=== PATIENT | female | born 1955 | race Caucasian/White ===

== ENCOUNTER 2020-04-23 11:30 | Outpatient (RCR) | payer OTHER, SELFPAY ==
--- NOTE | 2020-04-23 14:34 | P.EN_ITS ---
Event Note Event Note: Message left for pt at [phone] to complete medication review.
--- NOTE | 2020-04-23 14:34 | PM.EVENT ---
Event Note Event Note: Message left for pt at [phone] to complete medication review.
== END 2020-04-23 23:55 | disposition home or self-care (01) ==
LOC: HO.PHPA 11:30
PROVIDERS: Visit Provider Psychiatry & Neurology Psychiatry
DX: F33.2 Major depressive disorder, recurrent severe without psychotic features (principal); F43.10 Post-traumatic stress disorder, unspecified
CPT/HCPCS: 90853

== ENCOUNTER 2020-05-06 12:43 | Outpatient (REF) | payer OTHER, SELFPAY ==
--- NOTE | 2020-05-06 13:28 | XR_ITS ---
EXAMINATION: XR knee standing BI, XR knee RT 2V CLINICAL INFORMATION: Reason for Exam M25.461 - Effusion, right knee COMPARISON: None available at the time of this dictation. TECHNIQUE: Bilateral frontal standing, right lateral patella sunrise view. FINDINGS: BONES: No fracture or dislocation is present. JOINTS: Narrowing of joint spaces and developed osteophytes from the edges of articular surfaces suggest degenerative osteoarthritis. Intra-articular calcification concerning for possible calcium pyrophosphate deposition disease. SOFT TISSUE: Normal XR/XR knee standing BI IMPRESSION: Mild to moderate degenerative osteoarthritis involving both knees medial and lateral compartments. Intra-articular calcification concerning for possible CPPD. Please correlate with patient's laboratory data.
--- NOTE | 2020-05-06 13:28 | XR_ITS ---
EXAMINATION: XR knee standing BI, XR knee RT 2V CLINICAL INFORMATION: Reason for Exam M25.461 - Effusion, right knee COMPARISON: None available at the time of this dictation. TECHNIQUE: Bilateral frontal standing, right lateral patella sunrise view. FINDINGS: BONES: No fracture or dislocation is present. JOINTS: Narrowing of joint spaces and developed osteophytes from the edges of articular surfaces suggest degenerative osteoarthritis. Intra-articular calcification concerning for possible calcium pyrophosphate deposition disease. SOFT TISSUE: Normal XR/XR knee RT 2V IMPRESSION: Mild to moderate degenerative osteoarthritis involving both knees medial and lateral compartments. Intra-articular calcification concerning for possible CPPD. Please correlate with patient's laboratory data.
== END 2020-05-06 12:44 | disposition home or self-care (01) ==
LOC: HO.XRAY 12:43
PROVIDERS: PCP Internal Medicine; Referring Provider Internal Medicine; Visit Provider Orthopaedic Surgery
DX: M25.461 Effusion, right knee (principal); M17.11 Unilateral primary osteoarthritis, right knee; M76.31 Iliotibial band syndrome, right leg
CPT/HCPCS: 20610; 73560; 73565; 99213; J1100

== ENCOUNTER 2020-07-06 15:40 | Emergency (ER) | payer OTHER, SELFPAY ==
[2020-07-06 15:43] VITALS: BP 110/55; PULSE 65; RESP 16; TEMP 36.2; O2SAT 98; BMI 23.0
--- NOTE | 2020-07-06 16:01 | ED.NAVMDI ---
HPI - Nausea/Vomiting/Diarrhea General Chief complaint: Nausea/Vomiting/Diarrhea Stated complaint: covid symptoms Time Seen by Provider: 07/06/20 15:59 Source: patient Mode of arrival: ambulatory History of Present Illness HPI Narrative: 64-year-old female with a past medical history of hiatal hernia, hyperthyroid, osteoarthritis presenting to ED complaining of diarrhea x2 days, chronic fatigue, and chronic headaches. Denies fever, chills, cough, chest pain, shortness of breath, abdominal pain, recent travel, sick contacts MD elicited complaint: diarrhea Related Data Home Medications Medication Instructions Recorded Confirmed escitalopram oxalate 20 mg tablet 20 mg PO DAILY 05/05/20 07/06/20 lamotrigine 100 mg tablet 100 mg PO DAILY 05/05/20 07/06/20 levothyroxine 100 mcg tablet 100 mcg PO DAILY 05/05/20 07/06/20 omeprazole 20 mg capsule,delayed 20 mg PO DAILY 05/05/20 07/06/20 release topiramate 50 mg capsule 50 mg PO DAILY 05/05/20 07/06/20 sprinkle,extended release 24 hr trazodone 50 mg tablet 25 mg PO DAILY 05/05/20 07/06/20 Allergies Allergy/AdvReac Type Severity Reaction Status Date / Time No Known Allergies Allergy Verified 05/06/20 13:04 Review of Systems Review of Systems: Constitutional: No Weight loss, No Fever, No Chills Cardiovascular: No Chest Pain, No SOB Respiratory: No Cough Gastrointestinal: No Nausea, No Vomiting, +Diarrhea, No Constipation, No Abdominal pain Genitourinary: No Dysuria, No Hematuria, No Flank Pain Musculoskeletal: No joint pain, No Myalgias, No Joint Swelling Skin: No Skin Lesions, No rash Yes all other systems are reviewed and are negative [facility] Past Medical History Attestation statement: The following information was validated with the patient. Medical History (Updated 07/06/20 @ 16:01 by MANUEL Black) Effusion, right knee Hiatal hernia Hip pain Hyperthyroidism Iliotibial band syndrome affecting right lower leg Osteoarthritis of right knee Surgical History History of cholecystectomy Trigger finger of right hand Family History Family History Father No problems noted. Mother No problems noted. 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 Physical Exam Vital Signs: Vital Signs: Last Vital Signs Temp 97.1 F 07/06/20 15:43 Pulse 65 07/06/20 15:43 Resp 16 07/06/20 15:43 BP 110/55 L 07/06/20 15:43 Pulse Ox 98 07/06/20 15:43 Body Mass Index 23.0 Const: General: cooperative and healthy appearing Orientation/consciousness: patient oriented x3 Limitations: no limitations HENMT: Head: Yes normal to inspection Ears: hearing grossly normal bilaterally General nose exam: Normal external nose present Face and sinus: Yes normal facial exam Eyes: General: appearance normal, both eyes and all related structures EOM: EOMs intact bilaterally Neck: Neck: Yes normal visual inspection Resp: Effort & Inspection: normal respiratory effort Cardio: Rate: regular rate GI: Inspection: Yes normal to inspection Palpation (GI): Soft to palpation, nontender, no guarding and not rigid Skin: Rashes: no rashes Wounds: no wounds Neuro: General: patient oriented x3 Gait exam (Neuro): Normal gait present Extrem: General: Yes normal to inspection MDM - Nausea/Vomiting/Diarrhea MDM Narrative Medical decision making narrative: On exam VSS, NAD/well-appearing, nontoxic, abdomen soft/nontender. Concern for viral syndrome/COVID-19 versus gastroenteritis. Low concern for appendicitis/diverticulitis/cholecystitis or other intra-abdominal infection without tenderness on exam Discharge Plan Discharge Clinical Impression: Acute viral syndrome Patient Disposition: Home, Self-Care Instructions: Viral Syndrome (ED) Additional Instructions: Based on your symptoms and history we have sent a COVID-19. Although your RESULT IS PENDING at this time. RESULTS should return within 3-7 days. At this time you will be contacted with either NEGATIVE OR POSITIVE results. -Please wait until we contact you for your results. At this time you will be okay for discharge. Please plan for self quarantine for up to 14 days. Do not expose yourself to others. You may not go to work. If testing does come back negative you may return to activities as long as you are no longer having any symptoms for at least 3 days. Please continue to follow cold instructions and wash your hands frequently. You may take Tylenol as directed on the bottle for pain or fever. CDC Guidelines for home isolation: - Stay away from others - WEAR A MASK if you are sick AND STAY HOME - Cover your mouth and nose with a tissue when you cough or sneeze. Dispose of tissues in a lined trash can and wash your hands immediately with soap and water for at least 20 seconds. If soap and water are not available, clean hands with alcohol-based hand clerical methods analyst that contains at least 60% alcohol. - Clean your hands often with soap and water for at least 20 seconds - Avoid touching your eyes, nose and mouth with unwashed hands - Do not share dishes, drinking glasses, cups, eating utensils, towels, or bedding with other people in your home. After using these items, wash them thoroughly with soap and water or put in the airline customer service agent. - Clean high-touch surfaces in your isolation area ( sick room and bathroom) every day; let a caregiver clean and disinfect high-touch surfaces in other areas of the home. Clean the area or item with soap and water or another detergent if it is dirty. Then, use a household disinfectant. - Limit contact with pets and animals: If you must care for a pet, wash your hands before and after interacting with them) Prescriptions: No Action levothyroxine 100 mcg tablet 100 mcg PO DAILY RF: 0 lamotrigine 100 mg tablet 100 mg PO DAILY RF: 0 omeprazole 20 mg capsule,delayed release(DR/EC) 20 mg PO DAILY RF: 0 escitalopram oxalate 20 mg tablet 20 mg PO DAILY RF: 0 topiramate 50 mg capsule,sprinkle,ER 24hr 50 mg PO DAILY RF: 0 trazodone 50 mg tablet 25 mg PO DAILY RF: 0 Referrals: Maritza Hurley MD [Primary Care Provider] - 2 days (call)
== END 2020-07-06 16:21 | disposition home or self-care (01) ==
PROVIDERS: Physician Assistant; Emergency Provider Emergency Medicine; PCP Internal Medicine
DX: B34.9 Viral infection, unspecified (principal); R51.9 Headache, unspecified; R53.1 Weakness; Z20.828 Contact with and (suspected) exposure to other viral communicable diseases; Z79.899 Other long term (current) drug therapy
CPT/HCPCS: 99283; U0003

== ENCOUNTER 2020-07-23 16:19 | Outpatient (REF) | payer OTHER, SELFPAY ==
--- NOTE | 2020-07-23 16:23 | MM_ITS ---
EXAMINATION: MM SCREENING DIGITAL BREAST TOMOSYNTHESIS, BILATERAL CLINICAL INFORMATION: Screening. Asymptomatic. The lifetime risk of breast cancer based on the Tyrer-Cuzick Model is 8%. COMPARISON: Mammography: 03/07/2019; outside exams 03/27/2018, 11/22/2016 ([facility]). TECHNIQUE: Digital breast tomosynthesis is performed in both the craniocaudal and mediolateral oblique views along with computer-aided detection (CAD). Synthesized 2D images are generated from the tomosynthesis. FINDINGS: The breasts are heterogeneously dense, which may obscure small masses (ACR BI-RADS breast composition Category c). There are no significant masses, abnormal calcifications, or other abnormalities. The axilla and skin contours are unremarkable. No significant changes. MM/MM tomosynthesis screening BI IMPRESSION: No mammographic evidence of malignancy. ASSESSMENT: BI-RADS 1: Negative RECOMMENDATION: Routine annual mammography screening. This patient's information was entered into a reminder system with a target due date for their next mammogram.
== END 2020-07-23 16:20 | disposition home or self-care (01) ==
LOC: HO.MAMMO 16:19
PROVIDERS: PCP Physician Assistant; Visit Provider Physician Assistant
DX: Z12.31 Encounter for screening mammogram for malignant neoplasm of breast (principal)
CPT/HCPCS: 77063; 77067

== ENCOUNTER 2020-12-23 11:03 | Outpatient (REF) | payer OTHER, SELFPAY ==
[2020-12-23 12:59] LABS: Vitamin B12 405 pg/mL (200-900)
[2020-12-24 08:46] LABS: Syphilis Screen Nonreactive (Nonreactive)
[2020-12-24 12:16] LABS: Lyme Abs Screen <0.90 index
== END 2020-12-23 11:04 | disposition home or self-care (01) ==
LOC: HO.LAB 11:03
PROVIDERS: PCP Internal Medicine; Visit Provider Psychiatry & Neurology Neurology
DX: G31.84 Mild cognitive impairment of uncertain or unknown etiology (principal); G43.009 Migraine without aura, not intractable, without status migrainosus
CPT/HCPCS: 36415; 82607; 86617; 86618; 86780

== ENCOUNTER → 2020-12-27 08:31 | Outpatient (BNVA) | payer OTHER, SELFPAY | PROVIDERS: PCP Internal Medicine; Visit Provider Orthopaedic Surgery | DX: M54.16 Radiculopathy, lumbar region (principal); M17.11 Unilateral primary osteoarthritis, right knee; M76.31 Iliotibial band syndrome, right leg; M25.461 Effusion, right knee; M89.8X1 Other specified disorders of bone, shoulder | CPT/HCPCS: 99212 ==

== ENCOUNTER → 2021-01-03 13:01 | Outpatient (BNVA) | payer OTHER, SELFPAY | PROVIDERS: PCP Internal Medicine; Visit Provider Internal Medicine | DX: M54.16 Radiculopathy, lumbar region (principal); M46.92 Unspecified inflammatory spondylopathy, cervical region; M54.12 Radiculopathy, cervical region; G57.03 Lesion of sciatic nerve, bilateral lower limbs | CPT/HCPCS: 99202 ==

== ENCOUNTER 2021-02-02 10:29 | Outpatient (REF) | payer OTHER, SELFPAY ==
--- NOTE | ~2021-02-02 | MR_ITS ---
MR CERVICAL SPINE WITHOUT IV CONTRAST CLINICAL INFORMATION: Inflammatory arthropathy. COMPARISON: None available. TECHNIQUE: MRI of the cervical spine was obtained using routine sequences without contrast. FINDINGS: There is mild anterior subluxation of C3 on C4 and there is mild retrosubluxation of C4 on C5, C5 on C6, and C6 on C7. There is mild anterior subluxation of C7 on T1. The vertebral body heights are maintained. There is severe disc volume loss at C4-C5, C5-C6, and C6-C7. There is no bone marrow edema. There are no acute fractures. Craniocervical junction is unremarkable. Cervical arterial flow voids are maintained. There are no significant extraspinal soft tissue findings. There are no cord signal changes. The partially imaged intracranial compartment is unremarkable. C2-C3: Disc contour is normal. No central canal stenosis and no foraminal stenosis. C3-C4: Mild anterior subluxation. Uncovertebral joint spurring and facet arthropathy result in moderate left-sided foraminal stenosis. Small shallow central disc protrusion. No central canal and no right foraminal stenosis. C4-C5: Mild retrosubluxation. Disc osteophyte mildly narrows the central canal. Advanced uncovertebral joint hypertrophy and hypertrophic facet arthropathy result in severe right-sided foraminal stenosis. No left foraminal stenosis. C5-C6: Mild retrosubluxation. Disc osteophyte and ligamentum flavum thickening mildly narrow the central canal. Advanced uncovertebral joint hypertrophy and hypertrophic facet arthropathy result in moderate to severe bilateral foraminal stenosis. C6-C7: Disc osteophyte and ligamentum flavum thickening mildly narrow the central canal. Uncovertebral joint spurring and facet arthropathy result in mild bilateral foraminal encroachment. C7-T1: Mild anterior subluxation. No central canal stenosis. Mild bilateral foraminal encroachment. MR/MR cervical spine wo con IMPRESSION: Multilevel cervical spondylosis. Spondylitic changes result in moderate left C3-C4, severe right C4-C5, and moderate to severe bilateral C5-C6 foraminal stenosis. There is no severe central canal stenosis within the cervical spine. No bone marrow edema.
== END 2021-02-02 10:30 | disposition home or self-care (01) ==
LOC: HO.MRI 10:29
PROVIDERS: PCP Internal Medicine; Visit Provider Anesthesiology
DX: M46.92 Unspecified inflammatory spondylopathy, cervical region (principal); M54.12 Radiculopathy, cervical region
CPT/HCPCS: 72141

== ENCOUNTER 2021-02-09 10:26 | Outpatient (REF) | payer OTHER, SELFPAY ==
--- NOTE | ~2021-02-09 | MR_ITS ---
EXAMINATION: MR LUMBAR SPINE WITHOUT CONTRAST CLINICAL INFORMATION: Chronic lower back pain with right-sided sciatic pain. Right leg pain with right toe tingling. COMPARISON: None TECHNIQUE: MRI of the lumbar spine was obtained using routine sequences without contrast. FINDINGS: VERTEBRAL BODIES AND PARASPINAL STRUCTURES: Normal vertebral body alignment. The lumbar lordosis is maintained. No acute fracture or subluxation. No loss of vertebral body height. Prominent loss of intervertebral disc height with Modic type II degenerative endplate changes at T12-L1. More mild degenerative disc disease throughout the lumbar spine. No marrow edema to suggest acute osseous injury. The visualized paraspinal soft tissues are unremarkable. CONUS MEDULLARIS AND CAUDA EQUINA: Normal, terminating at the level of L2. SPINAL LEVELS: T12-L1: Broad-based disc bulge with bilateral facet arthropathy. No significant central canal or neural foraminal stenosis. Left foraminal perineural cyst measuring up to 1.2 cm. L1-L2: Shallow disc bulge with bilateral facet arthropathy. No significant central canal or neural foraminal stenosis. L2-L3: Minimal broad-based disc bulge with bilateral facet arthropathy and thickening of the ligamentum flavum. Mild bilateral neural foraminal stenosis. L3-L4: Broad-based disc bulge with bilateral facet arthropathy and thickening of the ligamentum flavum causing mild bilateral neural foraminal stenosis. L4-L5: Broad-based disc bulge, slightly asymmetric to the right with bilateral facet arthropathy and thickening of the ligamentum flavum causing mild bilateral neural foraminal stenosis. L5-S1: Broad-based disc bulge with prominent bilateral facet arthropathy, right greater than left. There is a right-sided synovial cyst anterior to the right facet measuring up to 1.0 cm within the lateral recess which contacts and displaces the traversing right S1 nerve root. [id number] right and mild left neural foraminal stenosis. MR/MR lumbar spine wo con IMPRESSION: 1. Prominent degenerative disc disease at T12-L1 with a broad-based disc bulge and bilateral facet arthropathy. Left foraminal perineural cyst measuring up to 1.2 cm. 2. Mild broad-based disc bulge at L5-S1 with prominent bilateral facet arthropathy, right greater than left. Right-sided synovial cyst anterior to the facet joint measuring 1.0 cm within the lateral recess which displaces the traversing right S1 nerve root. Moderate right and mild left neural foraminal stenosis. 3. Additional mild disc bulges with bilateral facet arthropathy causing mild bilateral neural foraminal stenosis, as above.
== END 2021-02-09 10:27 | disposition home or self-care (01) ==
LOC: HO.MRI 10:26
PROVIDERS: PCP Internal Medicine; Visit Provider Anesthesiology
DX: M54.16 Radiculopathy, lumbar region (principal)
CPT/HCPCS: 72148

== ENCOUNTER → 2021-02-18 09:42 | Outpatient (BNVA) | payer OTHER, SELFPAY | PROVIDERS: PCP Internal Medicine; Visit Provider Internal Medicine | DX: M71.38 Other bursal cyst, other site (principal); M46.92 Unspecified inflammatory spondylopathy, cervical region; M54.12 Radiculopathy, cervical region; M51.34 Other intervertebral disc degeneration, thoracic region | CPT/HCPCS: Q3014 ==

== ENCOUNTER → 2021-03-11 10:29 | Outpatient (BNVA) | payer OTHER, SELFPAY | PROVIDERS: PCP Internal Medicine; Visit Provider Internal Medicine | DX: M71.38 Other bursal cyst, other site (principal); M46.92 Unspecified inflammatory spondylopathy, cervical region; M54.12 Radiculopathy, cervical region | CPT/HCPCS: 99212 ==

== ENCOUNTER 2021-03-30 | Outpatient (REF) | payer OTHER, SELFPAY ==
--- NOTE | ~2021-03-30 | FL_ITS ---
EXAMINATION: XR FLUOROSCOPY WITH IMAGES CLINICAL INFORMATION: Bursal cyst. COMPARISON: None. TECHNIQUE: Fluoroscopy performed by Dr. Rand. Fluoroscopy time: 0.7 minutes DAP: 4.63 Gy-cm2 Images: 2 FINDINGS: There are 2 images obtained of the lower lumbar spine revealing contrast opacifying soft tissues medial to the right L5 pedicle. The L4 and L5 pedicles appear intact. The facet joints are normal. Visualized left SI joint is normal. No fracture or lytic process seen. FL/FL guidance in treatment room IMPRESSION: Fluoroscopy was provided to referring physician for pain management.
== END 2021-03-30 00:01 | disposition home or self-care (01) ==
LOC: HO.RADIR
PROVIDERS: Visit Provider Internal Medicine
DX: Z13.89 Encounter for screening for other disorder (principal)

== ENCOUNTER → 2021-03-30 10:40 | Outpatient (BNVA) | payer OTHER, SELFPAY | PROVIDERS: PCP Internal Medicine; Visit Provider Internal Medicine | DX: M71.38 Other bursal cyst, other site (principal) | CPT/HCPCS: 64493; J1040 ==

== ENCOUNTER 2021-04-13 20:47 | Inpatient (IN) | payer OTHER, SELFPAY ==
[2021-04-13 23:21] VITALS: BP 112/76; PULSE 76; RESP 18; TEMP 36.7; O2SAT 100
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
[2021-04-13] MEDS: traZODone HCL 50 MG TABLET PO (23:51)
[2021-04-14 06:00] VITALS: BP 116/64; PULSE 96; RESP 16; TEMP 35.9; O2SAT 56
[2021-04-14] MEDS: Levothyroxine Sodium 100 MCG TABLET PO (06:29)
[2021-04-14] MEDS: Omeprazole 20 MG CAPSULE.DR PO (06:29)
[2021-04-14] MEDS: traZODone HCL 25 MG HALFTAB PO ×2 (08:47→22:34)
[2021-04-14] MEDS: Escitalopram Oxalate 20 MG TABLET PO (08:47)
[2021-04-14] MEDS: lamoTRIgine 100 MG TABLET 200 MG PO ×2 (08:47→20:32)
[2021-04-14 12:37] VITALS: O2SAT 95
[2021-04-14] MEDS: Acetaminophen 325 MG TABLET 650 MG PO (16:24)
[2021-04-14] MEDS: hydrOXYzine HCL 25 MG TABLET PO (22:35)
[2021-04-15 06:00] VITALS: BP 105/58; PULSE 65; RESP 16; TEMP 36.5; O2SAT 96
[2021-04-15] MEDS: Omeprazole 20 MG CAPSULE.DR PO (06:20)
[2021-04-15] MEDS: Levothyroxine Sodium 100 MCG TABLET PO (06:20)
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
[2021-04-15] MEDS: Escitalopram Oxalate 10 MG TABLET 30 MG PO (08:45)
[2021-04-15] MEDS: lamoTRIgine 100 MG TABLET 200 MG PO ×2 (08:46→20:56)
[2021-04-15 09:25] LABS: TSH reflex Free T4 2.07 uIU/mL (0.32-4.0)
--- NOTE | 2021-04-15 13:05 | HO.PM.IMCN ---
History of Present Illness Data of Consult Service Date: 04/15/21 Primary Care Provider: Unknown Physician HPI Reason for consult: Medical management and history and physical 65-year-old female patient with past medical history significant for hypothyroidism, depression, PTSD admitted to with worsening depression and suicide attempt, patient complaining of constipation, fatigue and feeling cold Symptoms are ongoing for several months, has been taking my multiple stool softeners and fiber medications without significant improvement, denies any abdominal pain, no nausea no vomiting, no chest pain, no palpitations. Review of Systems Review of Systems: General no headache no dizziness no fever chills. CVS no chest pain, no palpitation. Respiratory no cough no sob. Gastrointestinal no nausea no vomiting, no abdominal pain Yes all other systems are reviewed and are negative PMFSH Medical History Effusion, right knee Headache Hiatal hernia Hip pain Hyperthyroidism Lumbar radiculopathy, right MDD (major depressive disorder), recurrent episode, severe Osteoarthritis of right knee Periscapular pain PTSD (post-traumatic stress disorder) Synovial cyst of lumbar facet joint Thoracic degenerative disc disease Functional capacity: independent ambulation Family History Father No problems noted. Mother No problems noted. Pertinent family history: Has strong family history of breast cancer 2 grandmothers, maternal aunt and her 2 daughters have breast CA in their 40s, no history of colon cancer, no history of premature coronary artery disease. Surgical History History of cholecystectomy Trigger finger of right hand Social History Household Members: None Housing: Apartment Do you presently have visiting nurse or other home services: No Alcohol intake: current Alcohol intake frequency: holidays/special occasions only Patient Tobacco Use Status: Current everyday Tobacco user Tobacco use type: Cigarette Cigarettes Per Day: 1 Smoked in Last 30 Days: Yes Patient Interested in Nicotine Replacement: No Patient Given Instructions on How to Stop Smoking: No Second Hand Smoke Exposure: No Use of substances other than those prescribed or required for medical reasons: No Currently Displaying Signs/Symptoms of Drug Intoxication Withdrawal: No Have you been hit, kicked, punched, or otherwise hurt by someone within the past year? If so, by whom?: No Do you feel safe in your current relationship?: No Current Relationship Is there a partner from a previous relationship who is making you feel unsafe now?: No Are you made to feel afraid or neglected: Yes (Patient reports feeling targeted by family regarding PTSD) Advance Directives: No Advance Directives Information Provided: No Do you have thoughts of harming others: None Do you have a plan to hurt others: No Plan Recently lost weight without trying: Unsure Nutrition Risks: No Nutritional Risk Patient : No : No Poor oral hygiene: No service: No Current occupational status: employed 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 Sexual orientation: Straight/Heterosexual Meds Allergies Allergy/AdvReac Type Severity Reaction Status Date / Time No Known Allergies Allergy Verified 03/30/21 11:07 Active Medications: Current Medications Acetaminophen (Acetaminophen 325 Mg Tablet) 650 mg PO Q6H PRN PRN Reason: Headache/Pain Mild Scale (1-3) Last Admin: 04/14/21 16:24 Dose: 650 mg Documented by: Al Hydroxide/Mg Hydroxide (Magnesium Hydrox/Alum Hydrox 30 Ml Oral.Susp) 30 ml PO Q6H PRN PRN Reason: Heartburn/Nausea Escitalopram Oxalate (Escitalopram Oxalate 10 Mg Tablet) 30 mg PO DAILY [facility] Last Admin: 04/15/21 08:45 Dose: 30 mg Documented by: Hydroxyzine HCl (Hydroxyzine Hcl 25 Mg Tablet) 25 mg PO BEDTIME PRN PRN Reason: Anxiety Last Admin: 04/14/21 22:35 Dose: 25 mg Documented by: Lamotrigine (Lamotrigine 100 Mg Tablet) 200 mg PO BID [facility] Last Admin: 04/15/21 08:46 Dose: 200 mg Documented by: Levothyroxine Sodium (Levothyroxine Sodium 100 Mcg Tablet) 100 mcg PO DAILY@0600 [facility] Last Admin: 04/15/21 06:20 Dose: 100 mcg Documented by: Magnesium Hydroxide (Milk Of Magnesia 30 Ml Oral.Susp) 30 ml PO DAILY PRN PRN Reason: Constipation Naproxen (Naproxen 500 Mg Tablet) 500 mg PO BID PRN PRN Reason: Pain, Moderate (Pain Scale 4-6 Nicotine Polacrilex (Nicotine Polacrilex 2 Mg Gum) 2 mg BUCCAL Q2H PRN PRN Reason: Nicotine Cravings Omeprazole (Omeprazole 20 Mg Capsule.Dr) 20 mg PO DAILY@0630 [facility] Last Admin: 04/15/21 06:20 Dose: 20 mg Documented by: Sumatriptan Succinate (Sumatriptan Succinate 50 Mg Tablet) 50 mg PO DAILY PRN PRN Reason: Migraine Headache Trazodone HCl (Trazodone Hcl 25 Mg Halftab) 25 mg PO BEDTIME [facility] Last Admin: 04/14/21 22:34 Dose: 25 mg Documented by: Trazodone HCl (Trazodone Hcl 25 Mg Halftab) 25 mg PO BEDTIME PRN PRN Reason: Insomnia Home Medications Medication Instructions Recorded Confirmed Last Taken Type escitalopram oxalate 20 mg tablet 20 mg PO DAILY 05/05/20 03/30/21 Unknown History trazodone 50 mg tablet 25 mg PO DAILY 05/05/20 03/30/21 Unknown History lamotrigine 200 mg tablet 200 mg PO BID 12/27/20 03/30/21 Unknown History sumatriptan succinate 50 mg tablet 50 mg PO .prn tab 01/03/21 03/30/21 Unknown History Physical Exam Vital Signs and Narrative: Vital Signs: Last Vital Signs Temp 97.7 F 04/15/21 06:00 Pulse 65 04/15/21 06:00 Resp 16 04/15/21 06:00 BP 105/58 L 04/15/21 06:00 Pulse Ox 96 04/15/21 06:00 General AxOx3, no acute distress. Neck supple no JVD. CVS regular rate rhythm, Respiratory lungs clear to auscultation, no respiratory distress, no wheeze, no rhonchi. Gastrointestinal abdomen soft, nontender, bowel sounds audible, no rigidity. Extremities no edema. Neuro nonfocal ,speech clear. Skin no rash, dry and warm Results Labs Labs: Laboratory Results - last 24 hr 04/15/21 08:05 TSH 2.07 Assessment and Plan (1) Constipation: Status: Acute (2) Hypothyroidism: Status: Acute 65-year-old female patient with past medical history of hypothyroidism admitted to with symptoms of depression and suicide attempt at present patient complaining of significant constipation feeling cold and fatigue. Hypothyroidism/constipation TSH within normal range continue Synthroid current dose, in regard to symptoms of constipation recommended Metamucil/fluid intake and outpatient follow-up with endocrinology Tobacco use disorder recommended Nicorette gums and strongly advised to abstain from smoking Thank you for allowing us to participate in the care of this patient please call us with any medical questions.
--- NOTE | 2021-04-15 17:10 | P.PNPSI_ITS ---
Subjective Subjective Date of Service: 04/15/21 Reason For Visit: SI Diagnostics Vital Signs (24Hr): Vital Signs - 24 hr 04/15/21 06:00 Temperature 97.7 F Pulse Rate 65 Respiratory Rate 16 Blood Pressure 105/58 L Pulse Oximetry 96 Labs Labs: Laboratory Results - last 48 hr 04/15/21 08:05 TSH 2.07 Medications Medications Current Medications Acetaminophen (Acetaminophen 325 Mg Tablet) 650 mg PO Q6H PRN PRN Reason: Headache/Pain Mild Scale (1-3) Last Admin: 04/14/21 16:24 Dose: 650 mg Documented by: Al Hydroxide/Mg Hydroxide (Magnesium Hydrox/Alum Hydrox 30 Ml Oral.Susp) 30 ml PO Q6H PRN PRN Reason: Heartburn/Nausea Escitalopram Oxalate (Escitalopram Oxalate 10 Mg Tablet) 30 mg PO DAILY [facility] Last Admin: 04/15/21 08:45 Dose: 30 mg Documented by: Hydroxyzine HCl (Hydroxyzine Hcl 25 Mg Tablet) 25 mg PO BEDTIME PRN PRN Reason: Anxiety Last Admin: 04/14/21 22:35 Dose: 25 mg Documented by: Lamotrigine (Lamotrigine 100 Mg Tablet) 200 mg PO BID [facility] Last Admin: 04/15/21 08:46 Dose: 200 mg Documented by: Levothyroxine Sodium (Levothyroxine Sodium 100 Mcg Tablet) 100 mcg PO DAILY@0600 [facility] Last Admin: 04/15/21 06:20 Dose: 100 mcg Documented by: Magnesium Hydroxide (Milk Of Magnesia 30 Ml Oral.Susp) 30 ml PO DAILY PRN PRN Reason: Constipation Naproxen (Naproxen 500 Mg Tablet) 500 mg PO BID PRN PRN Reason: Pain, Moderate (Pain Scale 4-6 Nicotine Polacrilex (Nicotine Polacrilex 2 Mg Gum) 2 mg BUCCAL Q2H PRN PRN Reason: Nicotine Cravings Omeprazole (Omeprazole 20 Mg Capsule.Dr) 20 mg PO DAILY@0630 [facility] Last Admin: 04/15/21 06:20 Dose: 20 mg Documented by: Psyllium Hydrophilic Mucilloid (Psyllium Seed 3.4 Gm Powd.Pack) 3.4 gm PO DAILY [facility] Sumatriptan Succinate (Sumatriptan Succinate 50 Mg Tablet) 50 mg PO DAILY PRN PRN Reason: Migraine Headache Trazodone HCl (Trazodone Hcl 25 Mg Halftab) 25 mg PO BEDTIME [facility] Last Admin: 04/14/21 22:34 Dose: 25 mg Documented by: Trazodone HCl (Trazodone Hcl 25 Mg Halftab) 25 mg PO BEDTIME PRN PRN Reason: Insomnia Allergies Allergies Allergy/AdvReac Type Severity Reaction Status Date / Time No Known Allergies Allergy Verified 03/30/21 11:07 Assessment & Plan Assessment & Plan (1) Constipation: Status: Acute Code(s): K59.00 - Constipation, unspecified (2) Hypothyroidism: Status: Acute Code(s): E03.9 - Hypothyroidism, unspecified Assessment and Plan: 65-year-old female patient with past medical history of hypothyroidism admitted to with symptoms of depression and suicide attempt at present patient complaining of significant constipation feeling cold and fatigue. Hypothyroidism/constipation TSH within normal range continue Synthroid current dose, in regard to symptoms of constipation recommended Metamucil/fluid intake and outpatient follow-up with endocrinology Tobacco use disorder recommended Nicorette gums and strongly advised to abstain from smoking Thank you for allowing us to participate in the care of this patient please call us with any medical questions. Greater than 50% of the session was spent on counseling and/or coordination of care
--- NOTE | 2021-04-15 17:14 | P.PNPSI_ITS ---
Subjective Subjective Date of Service: 04/15/21 Reason For Visit: SI Subjective Notes: Conditional Voluntary Guardianship: No Interim History: Pt had periods of agitation intense lability denies active si calmer moire cooperative later in the day can be reactive easily triggered Medication Compliance: Yes Side effects from medications: No Mental Status Exam Mental Status Exam Patient Appearance: Well Grooomed Patient Orientation: Person, Place and Situation Level of Consciousness: Awake and Appropriate Patient Behavior: Appropriate, Anxious and Good Eye Contact Mood Description: Constricted, Depressed, Anxious and Angry Affect Description: Constricted Ability to Follow Directions: Fair Speech Pattern: Clear Memory Description: Intact Hallucinations: None Delusions: Not Present Thought Process: Intact, Goal Oriented and Linear Thought Content: positive for Intact and positive for Suicidal Ideation (currently denies) Depressive Symptoms: Increased Anxiety, Increased Irritability, Difficulty Sleeping, Changes in Appetite, Hopelessness, Thoughts of /Suicide and Loss of Energy Judgement and Insight: Impaired Diagnostics Vital Signs (24Hr): Vital Signs - 24 hr 04/15/21 06:00 Temperature 97.7 F Pulse Rate 65 Respiratory Rate 16 Blood Pressure 105/58 L Pulse Oximetry 96 Labs Labs: Laboratory Results - last 48 hr 04/15/21 08:05 TSH 2.07 Medications Medications Current Medications Acetaminophen (Acetaminophen 325 Mg Tablet) 650 mg PO Q6H PRN PRN Reason: Headache/Pain Mild Scale (1-3) Last Admin: 04/14/21 16:24 Dose: 650 mg Documented by: Al Hydroxide/Mg Hydroxide (Magnesium Hydrox/Alum Hydrox 30 Ml Oral.Susp) 30 ml PO Q6H PRN PRN Reason: Heartburn/Nausea Escitalopram Oxalate (Escitalopram Oxalate 10 Mg Tablet) 30 mg PO DAILY [facility] Last Admin: 04/15/21 08:45 Dose: 30 mg Documented by: Hydroxyzine HCl (Hydroxyzine Hcl 25 Mg Tablet) 25 mg PO BEDTIME PRN PRN Reason: Anxiety Last Admin: 04/14/21 22:35 Dose: 25 mg Documented by: Lamotrigine (Lamotrigine 100 Mg Tablet) 200 mg PO BID [facility] Last Admin: 04/15/21 08:46 Dose: 200 mg Documented by: Levothyroxine Sodium (Levothyroxine Sodium 100 Mcg Tablet) 100 mcg PO DAILY@0600 [facility] Last Admin: 04/15/21 06:20 Dose: 100 mcg Documented by: Magnesium Hydroxide (Milk Of Magnesia 30 Ml Oral.Susp) 30 ml PO DAILY PRN PRN Reason: Constipation Naproxen (Naproxen 500 Mg Tablet) 500 mg PO BID PRN PRN Reason: Pain, Moderate (Pain Scale 4-6 Nicotine Polacrilex (Nicotine Polacrilex 2 Mg Gum) 2 mg BUCCAL Q2H PRN PRN Reason: Nicotine Cravings Omeprazole (Omeprazole 20 Mg Capsule.Dr) 20 mg PO DAILY@0630 [facility] Last Admin: 04/15/21 06:20 Dose: 20 mg Documented by: Psyllium Hydrophilic Mucilloid (Psyllium Seed 3.4 Gm Powd.Pack) 3.4 gm PO DAILY [facility] Sumatriptan Succinate (Sumatriptan Succinate 50 Mg Tablet) 50 mg PO DAILY PRN PRN Reason: Migraine Headache Trazodone HCl (Trazodone Hcl 25 Mg Halftab) 25 mg PO BEDTIME [facility] Last Admin: 04/14/21 22:34 Dose: 25 mg Documented by: Trazodone HCl (Trazodone Hcl 25 Mg Halftab) 25 mg PO BEDTIME PRN PRN Reason: Insomnia Allergies Allergies Allergy/AdvReac Type Severity Reaction Status Date / Time No Known Allergies Allergy Verified 03/30/21 11:07 Assessment & Plan Assessment & Plan (1) MDD (major depressive disorder), recurrent episode, severe: Status: Acute Code(s): F33.2 - Major depressive disorder, recurrent severe without psychotic features (2) PTSD (post-traumatic stress disorder): Status: Acute Code(s): F43.10 - Post-traumatic stress disorder, unspecified Assessment and Plan: s/p Od denies active SI. Given lorazepam p.r.n. continue Lamictal monitor for SI . Greater than 50% of the session was spent on counseling and/or coordination of care Reason for contiued inpatient stay Substantial Risk for: harm to self and rapid decompensation
[2021-04-15 18:00] VITALS: BP 120/83; PULSE 60
[2021-04-15] MEDS: traZODone HCL 25 MG HALFTAB PO (20:56)
[2021-04-16] MEDS: Omeprazole 20 MG CAPSULE.DR PO (05:54)
[2021-04-16] MEDS: Levothyroxine Sodium 100 MCG TABLET PO (05:54)
[2021-04-16 06:00] VITALS: BP 150/68; PULSE 69; RESP 16; TEMP 36.2; O2SAT 99
[2021-04-16] MEDS: lamoTRIgine 100 MG TABLET 200 MG PO ×2 (09:29→21:41)
[2021-04-16] MEDS: Escitalopram Oxalate 10 MG TABLET 30 MG PO (09:30)
--- NOTE | 2021-04-16 11:48 | P.PNPSI_ITS ---
Subjective Subjective Date of Service: 04/16/21 Reason For Visit: SI Subjective Notes: Conditional Voluntary Interim History: Feeling better, not sure it is from meds, reports she is thru crisis that brought her in - but has episodes trigger unbearable anxiety that lead to self harm- considering IFS treatment Medication Compliance: Yes Side effects from medications: No Attending Groups: Yes Review of Systems Acute medical concerns: No Review of Systems Review of Systems Yes all other systems are reviewed and are negative Mental Status Exam Mental Status Exam Narrative: REports feeling improved denied current si Patient Appearance: Appropriate Patient Orientation: Person, Place and Situation Level of Consciousness: Awake and Appropriate Patient Behavior: Appropriate Mood Description: Calm and Apathetic Affect Description: Calm and Appropriate Patient Cognition Impaired: No Ability to Follow Directions: Fair Speech Pattern: Clear Hallucinations: None Delusions: Not Present Thought Process: Intact Thought Content: positive for Intact Judgement: Fair Diagnostics Vital Signs (24Hr): Vital Signs - 24 hr 04/15/21 18:00 04/16/21 06:00 Temperature 97.1 F Pulse Rate 60 69 Respiratory Rate 16 Blood Pressure 120/83 150/68 H Pulse Oximetry 99 Labs Labs: Laboratory Results - last 48 hr 04/15/21 08:05 TSH 2.07 Medications Medications Current Medications Acetaminophen (Acetaminophen 325 Mg Tablet) 650 mg PO Q6H PRN PRN Reason: Headache/Pain Mild Scale (1-3) Last Admin: 04/14/21 16:24 Dose: 650 mg Documented by: Al Hydroxide/Mg Hydroxide (Magnesium Hydrox/Alum Hydrox 30 Ml Oral.Susp) 30 ml PO Q6H PRN PRN Reason: Heartburn/Nausea Escitalopram Oxalate (Escitalopram Oxalate 10 Mg Tablet) 30 mg PO DAILY [facility] Last Admin: 04/16/21 09:30 Dose: 30 mg Documented by: Hydroxyzine HCl (Hydroxyzine Hcl 25 Mg Tablet) 25 mg PO BEDTIME PRN PRN Reason: Anxiety Last Admin: 04/14/21 22:35 Dose: 25 mg Documented by: Lamotrigine (Lamotrigine 100 Mg Tablet) 200 mg PO BID [facility] Last Admin: 04/16/21 09:29 Dose: 200 mg Documented by: Levothyroxine Sodium (Levothyroxine Sodium 100 Mcg Tablet) 100 mcg PO DAILY@0600 [facility] Last Admin: 04/16/21 05:54 Dose: 100 mcg Documented by: Lorazepam (Lorazepam 0.5 Mg Tablet) 0.5 mg PO Q6H PRN PRN Reason: Anxiety Magnesium Hydroxide (Milk Of Magnesia 30 Ml Oral.Susp) 30 ml PO DAILY PRN PRN Reason: Constipation Naproxen (Naproxen 500 Mg Tablet) 500 mg PO BID PRN PRN Reason: Pain, Moderate (Pain Scale 4-6 Nicotine Polacrilex (Nicotine Polacrilex 2 Mg Gum) 2 mg BUCCAL Q2H PRN PRN Reason: Nicotine Cravings Omeprazole (Omeprazole 20 Mg Capsule.Dr) 20 mg PO DAILY@0630 [facility] Last Admin: 04/16/21 05:54 Dose: 20 mg Documented by: Psyllium Hydrophilic Mucilloid (Psyllium Seed 3.4 Gm Powd.Pack) 3.4 gm PO DAILY [facility] Last Admin: 04/16/21 09:34 Dose: 3.4 gm Documented by: Sumatriptan Succinate (Sumatriptan Succinate 50 Mg Tablet) 50 mg PO DAILY PRN PRN Reason: Migraine Headache Trazodone HCl (Trazodone Hcl 25 Mg Halftab) 25 mg PO BEDTIME [facility] Last Admin: 04/15/21 20:56 Dose: 25 mg Documented by: Trazodone HCl (Trazodone Hcl 25 Mg Halftab) 25 mg PO BEDTIME PRN PRN Reason: Insomnia Allergies Allergies Allergy/AdvReac Type Severity Reaction Status Date / Time No Known Allergies Allergy Verified 03/30/21 11:07 Assessment & Plan Assessment & Plan (1) MDD (major depressive disorder), recurrent episode, severe: Status: Acute Code(s): F33.2 - Major depressive disorder, recurrent severe without psychotic features (2) PTSD (post-traumatic stress disorder): Status: Acute Code(s): F43.10 - Post-traumatic stress disorder, unspecified Assessment and Plan: s/p Od denies active SI. tolerating inc lexapro would like to take trazodone at 10:30 pm . Greater than 50% of the session was spent on counseling and/or coordination of care Patient educated on: medication risk/benefits and therapeutic strategies Informed Consent: understands Reason for contiued inpatient stay Substantial Risk for: med/psych decompensation
[2021-04-16 17:05] VITALS: BP 142/89; PULSE 76; TEMP 36.8
[2021-04-16] MEDS: traZODone HCL 25 MG HALFTAB PO (21:41)
[2021-04-16] MEDS: Acetaminophen 325 MG TABLET 650 MG PO (21:44)
[2021-04-17 06:00] VITALS: BP 126/74; PULSE 64; RESP 17; TEMP 36.1; O2SAT 99
[2021-04-17] MEDS: Omeprazole 20 MG CAPSULE.DR PO (06:28)
[2021-04-17] MEDS: Levothyroxine Sodium 100 MCG TABLET PO (06:28)
[2021-04-17] MEDS: Escitalopram Oxalate 10 MG TABLET 30 MG PO (08:49)
[2021-04-17] MEDS: lamoTRIgine 100 MG TABLET 200 MG PO ×2 (08:49→20:14)
[2021-04-17] MEDS: NaPROXEN 500 MG TABLET PO ×2 (08:53→17:58)
--- NOTE | 2021-04-17 11:36 | HO.PSYCHPN ---
Subjective Subjective Date of Service: 04/17/21 Reason For Visit: SI Subjective Notes: Conditional Voluntary Interim History: Pt curious about any damage to self from trazodone and why it didn't kill her, though she regreted it didn't work the first day (though she called herself about od) she each day is feeling more centered and stronger about her life- hoping to find new strategies to approach her issues Medication Compliance: Yes Side effects from medications: No Attending Groups: Yes Review of Systems Acute medical concerns: No Medical Review of Systems: unchanged Mental Status Exam Mental Status Exam Narrative: REports feeling improved denied current si Patient Appearance: Appropriate Patient Orientation: Person, Place and Situation Level of Consciousness: Awake and Appropriate Patient Behavior: Appropriate Mood Description: Calm and Blunted Affect Description: Calm and Appropriate Patient Cognition Impaired: No Ability to Follow Directions: Fair Speech Pattern: Clear Memory Description: Intact Hallucinations: None Delusions: Not Present Thought Process: Intact Thought Content: positive for Intact Judgement: Fair Diagnostics Vital Signs (24Hr): Vital Signs - 24 hr 04/16/21 17:05 04/17/21 06:00 Temperature 98.2 F 97 F Pulse Rate 76 64 Respiratory Rate 17 Blood Pressure 142/89 H 126/74 Pulse Oximetry 99 Medications Medications Current Medications Acetaminophen (Acetaminophen 325 Mg Tablet) 650 mg PO Q6H PRN PRN Reason: Headache/Pain Mild Scale (1-3) Last Admin: 04/16/21 21:44 Dose: 650 mg Documented by: Al Hydroxide/Mg Hydroxide (Magnesium Hydrox/Alum Hydrox 30 Ml Oral.Susp) 30 ml PO Q6H PRN PRN Reason: Heartburn/Nausea Escitalopram Oxalate (Escitalopram Oxalate 10 Mg Tablet) 30 mg PO DAILY [facility] BEDS AT [facility] Last Admin: 04/17/21 08:49 Dose: 30 mg Documented by: Hydroxyzine HCl (Hydroxyzine Hcl 25 Mg Tablet) 25 mg PO BEDTIME PRN PRN Reason: Anxiety Last Admin: 04/14/21 22:35 Dose: 25 mg Documented by: Lamotrigine (Lamotrigine 100 Mg Tablet) 200 mg PO BID [facility] 234 BEDS AT [facility] Last Admin: 04/17/21 08:49 Dose: 200 mg Documented by: Levothyroxine Sodium (Levothyroxine Sodium 100 Mcg Tablet) 100 mcg PO DAILY@0600 [facility]CLUDE 234 BEDS AT [facility] Last Admin: 04/17/21 06:28 Dose: 100 mcg Documented by: Lorazepam (Lorazepam 0.5 Mg Tablet) 0.5 mg PO Q6H PRN PRN Reason: Anxiety Magnesium Hydroxide (Milk Of Magnesia 30 Ml Oral.Susp) 30 ml PO DAILY PRN PRN Reason: Constipation Naproxen (Naproxen 500 Mg Tablet) 500 mg PO BID PRN PRN Reason: Pain, Moderate (Pain Scale 4-6 Last Admin: 04/17/21 08:53 Dose: 500 mg Documented by: Nicotine Polacrilex (Nicotine Polacrilex 2 Mg Gum) 2 mg BUCCAL Q2H PRN PRN Reason: Nicotine Cravings Omeprazole (Omeprazole 20 Mg Capsule.Dr) 20 mg PO DAILY@0630 [facility] 234 BEDS AT [facility] Last Admin: 04/17/21 06:28 Dose: 20 mg Documented by: Psyllium Hydrophilic Mucilloid (Psyllium Seed 3.4 Gm Powd.Pack) 3.4 gm PO DAILY [facility] 234 BEDS [facility] Last Admin: 04/17/21 10:24 Dose: 3.4 gm Documented by: Sumatriptan Succinate (Sumatriptan Succinate 50 Mg Tablet) 50 mg PO DAILY PRN PRN Reason: Migraine Headache Trazodone HCl (Trazodone Hcl 25 Mg Halftab) 25 mg PO BEDTIME PRN PRN Reason: Insomnia Trazodone HCl (Trazodone Hcl 25 Mg Halftab) 25 mg PO BEDTIME [facility] COUNTS INCLUDE 234 BEDS AT [facility] Last Admin: 04/17/21 08:55 Dose: Not Given Documented by: Allergies Allergies Allergy/AdvReac Type Severity Reaction Status Date / Time No Known Allergies Allergy Verified 03/30/21 11:07 Assessment & Plan Assessment & Plan (1) MDD (major depressive disorder), recurrent episode, severe: Status: Acute Code(s): F33.2 - Major depressive disorder, recurrent severe without psychotic features (2) PTSD (post-traumatic stress disorder): Status: Acute Code(s): F43.10 - Post-traumatic stress disorder, unspecified Assessment and Plan: working on how to approach things differently - talking with staff, nurse Greater than 50% of the session was spent on counseling and/or coordination of care Patient educated on: medication risk/benefits and therapeutic strategies Informed Consent: understands Reason for contiued inpatient stay Substantial Risk for: rapid decompensation
[2021-04-17] MEDS: Acetaminophen 325 MG TABLET 650 MG PO (14:31)
[2021-04-17 16:36] VITALS: BP 132/69; PULSE 66; TEMP 36.9
[2021-04-17] MEDS: traZODone HCL 25 MG HALFTAB PO ×2 (22:45→23:33)
[2021-04-18] MEDS: Omeprazole 20 MG CAPSULE.DR PO (06:15)
[2021-04-18] MEDS: Levothyroxine Sodium 100 MCG TABLET PO (06:15)
[2021-04-18] MEDS: Escitalopram Oxalate 10 MG TABLET 30 MG PO (08:43)
[2021-04-18] MEDS: lamoTRIgine 100 MG TABLET 200 MG PO ×2 (08:43→22:36)
[2021-04-18 19:35] VITALS: BP 136/68; PULSE 65; TEMP 36.8
--- NOTE | 2021-04-18 21:57 | HO.PSYCHPN ---
Subjective Subjective Date of Service: 04/19/21 Reason For Visit: SI Interim History: pt reports feeling much better; she denies any SI at all and feels the crisis is behind her. Pt reports that she's gotten perspective and once again realizes she needs to erect firmer boundaries with her family. 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 While on the unit, pt initiated intake with eating disorder program in [facility]. Pt says she feels ready for discharge. She would like to remain on increased Lexapro dose. Pt asked about other medications options that she can consider and discuss further with her outpt provider and process description writer reviewed several considerations including buspar, mirtazpine, trileptal and lithium; process description writer however recommended that patient remain on both lexapro and lamictal for the time being until she has demonstrated enduring stability to which pt agreed. Fire Sprinkler Designer discussed pt intermittent bouts of anxiety to which she said this is chronic for her and at her baseline intensity. she says it's something she's been working on for a long time and that it resolves on its own as fast as it comes on. Mental Status Exam Mental Status Exam Narrative: Patient Appearance:?Well Grooomed Patient Orientation:?Person, Place and Situation Level of Consciousness:?Awake and Appropriate Patient Behavior:?Appropriate, calm, cooperative and Good Eye Contact Mood Description:? better Affect Description:?congruent; brighter affect Ability to Follow Directions:?good Speech Pattern:?Clear Memory Description:?Intact Hallucinations:?None Delusions:?Not Present Thought Process:?Intact, Goal Oriented and Linear Thought Content:?denies all SI/HI; TC on continuing treatment as outpt Judgement and Insight:?intact Medications Medications Current Medications Acetaminophen (Acetaminophen 325 Mg Tablet) 650 mg PO Q6H PRN PRN Reason: Headache/Pain Mild Scale (1-3) Last Admin: 04/17/21 14:31 Dose: 650 mg Documented by: Al Hydroxide/Mg Hydroxide (Magnesium Hydrox/Alum Hydrox 30 Ml Oral.Susp) 30 ml PO Q6H PRN PRN Reason: Heartburn/Nausea Escitalopram Oxalate (Escitalopram Oxalate 10 Mg Tablet) 30 mg PO DAILY MEET Last Admin: 04/18/21 08:43 Dose: 30 mg Documented by: Hydroxyzine HCl (Hydroxyzine Hcl 25 Mg Tablet) 25 mg PO BEDTIME PRN PRN Reason: Anxiety Last Admin: 04/14/21 22:35 Dose: 25 mg Documented by: Lamotrigine (Lamotrigine 100 Mg Tablet) 200 mg PO BID [facility] Last Admin: 04/18/21 08:43 Dose: 200 mg Documented by: Levothyroxine Sodium (Levothyroxine Sodium 100 Mcg Tablet) 100 mcg PO DAILY@0600 [facility] Last Admin: 04/18/21 06:15 Dose: 100 mcg Documented by: Lorazepam (Lorazepam 0.5 Mg Tablet) 0.5 mg PO Q6H PRN PRN Reason: Anxiety Magnesium Hydroxide (Milk Of Magnesia 30 Ml Oral.Susp) 30 ml PO DAILY PRN PRN Reason: Constipation Naproxen (Naproxen 500 Mg Tablet) 500 mg PO BID PRN PRN Reason: Pain, Moderate (Pain Scale 4-6 Last Admin: 04/17/21 17:58 Dose: 500 mg Documented by: Nicotine Polacrilex (Nicotine Polacrilex 2 Mg Gum) 2 mg BUCCAL Q2H PRN PRN Reason: Nicotine Cravings Omeprazole (Omeprazole 20 Mg Capsule.Dr) 20 mg PO DAILY@0630 [facility] Last Admin: 04/18/21 06:15 Dose: 20 mg Documented by: Psyllium Hydrophilic Mucilloid (Psyllium Seed 3.4 Gm Powd.Pack) 3.4 gm PO DAILY [facility] Last Admin: 04/18/21 08:54 Dose: 3.4 gm Documented by: Sumatriptan Succinate (Sumatriptan Succinate 50 Mg Tablet) 50 mg PO DAILY PRN PRN Reason: Migraine Headache Trazodone HCl (Trazodone Hcl 25 Mg Halftab) 25 mg PO BEDTIME PRN PRN Reason: Insomnia Trazodone HCl (Trazodone Hcl 50 Mg Tablet) 50 mg PO BEDTIME [facility] Allergies Allergies Allergy/AdvReac Type Severity Reaction Status Date / Time No Known Allergies Allergy Verified 03/30/21 11:07 Assessment & Plan Assessment & Plan (1) MDD (major depressive disorder), recurrent episode, severe: Status: Chronic Code(s): F33.2 - Major depressive disorder, recurrent severe without psychotic features (2) PTSD (post-traumatic stress disorder): Status: Chronic Code(s): F43.10 - Post-traumatic stress disorder, unspecified (3) Hypothyroidism: Status: Acute Code(s): E03.9 - Hypothyroidism, unspecified Assessment and Plan: pt much improved; mood is better, depression abated. Denies all SI; future oriented; feels she has regained perspective asks for discharge. Pt has outpt prescriber, therapist and good support network of friends. She is not in imminent risk of harm to self or others and is appropriate for discharge. plan: proceed w/ discharge Greater than 50% of the session was spent on counseling and/or coordination of care Reason for contiued inpatient stay Substantial Risk for: stable for discharge
[2021-04-18] MEDS: traZODone HCL 50 MG TABLET PO (22:36)
[2021-04-19] MEDS: Levothyroxine Sodium 100 MCG TABLET PO (06:43)
[2021-04-19] MEDS: Omeprazole 20 MG CAPSULE.DR PO (06:43)
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
[2021-04-19] MEDS: lamoTRIgine 100 MG TABLET 200 MG PO (08:54)
[2021-04-19] MEDS: Escitalopram Oxalate 10 MG TABLET 30 MG PO (08:54)
[2021-04-19] MEDS: SUMAtriptan succinate 50 MG TABLET PO (11:47)
== END 2021-04-19 14:37 | disposition home or self-care (01) | DRG 885 ==
PROVIDERS: Admitting Provider Psychiatry & Neurology Psychiatry; Visit Provider Psychiatry & Neurology Psychiatry
DX: F33.2 Major depressive disorder, recurrent severe without psychotic features (principal); R45.851 Suicidal ideations; K59.00 Constipation, unspecified; E03.9 Hypothyroidism, unspecified; F43.10 Post-traumatic stress disorder, unspecified; F17.210 Nicotine dependence, cigarettes, uncomplicated; Z71.6 Tobacco abuse counseling; Z23 Encounter for immunization; Z79.890 Hormone replacement therapy; Z79.899 Other long term (current) drug therapy
CPT/HCPCS: 36415; 84443; 90686

== ENCOUNTER → 2021-04-29 10:58 | Outpatient (BNVA) | payer OTHER, SELFPAY | PROVIDERS: Visit Provider Internal Medicine | DX: M71.38 Other bursal cyst, other site (principal); M25.561 Pain in right knee | CPT/HCPCS: 99212 ==

== ENCOUNTER 2021-06-08 06:01 | Outpatient (REF) | payer OTHER, SELFPAY | END 2021-06-08 06:02 | disposition home or self-care (01) | LOC: HO.RADIR 06:01 | PROVIDERS: Visit Provider Internal Medicine | DX: M25.561 Pain in right knee (principal); F17.210 Nicotine dependence, cigarettes, uncomplicated; Z79.899 Other long term (current) drug therapy | CPT/HCPCS: 64447 ==

== ENCOUNTER → 2021-07-18 15:48 | Outpatient (BNVA) | payer OTHER, SELFPAY | PROVIDERS: PCP Family Medicine; Visit Provider Internal Medicine | DX: M25.561 Pain in right knee (principal) | CPT/HCPCS: 99212 ==

== ENCOUNTER → 2022-02-13 14:58 | Outpatient (BNVA) | payer OTHER, SELFPAY | PROVIDERS: PCP Family Medicine; Visit Provider Internal Medicine | DX: M54.16 Radiculopathy, lumbar region (principal); M71.38 Other bursal cyst, other site | CPT/HCPCS: 99212 ==

== ENCOUNTER 2022-05-10 12:08 | Day surgery (SDC) | payer OTHER, SELFPAY ==
[2022-05-10 08:08] VITALS: BMI 23.9
[2022-05-10] MEDS: LORazepam 1 MG TABLET PO (12:31)
[2022-05-10 12:34] VITALS: BP 123/68; PULSE 81; RESP 18; TEMP 36.1; O2SAT 98
[2022-05-10 12:45] VITALS: BP 123/61; PULSE 78; RESP 18; TEMP 36.6; O2SAT 98
--- NOTE | 2022-05-10 12:49 | PC.NURSE ---
medicated with ativan 1mg po for anxiety. per order
[2022-05-10 14:01] VITALS: BP 116/69; PULSE 70; RESP 18; TEMP 36.4; O2SAT 99
--- NOTE | 2022-05-10 14:50 | MHC.SHP ---
Pre-Procedural Eval Section A Date of Service: 05/10/22 Section B Chief Complaint: Pain in right knee Relevant Family History (Specify if Yes): No Relevant Social History: None Present Medications: see Short Stay Collaborative assessment Medical History: No relevant PMH History of Previous Operations: Relevant previous surgery/procedure and date(s) (knee surgery) Allergies: Allergies Allergy/AdvReac Type Severity Reaction Status Date / Time No Known Allergies Allergy Verified 02/13/22 15:07 Review of Systems Sugical H&P ROS: Negative: Constitution, Cardiovascular and Respiratory Exam Surgical H&P Exam: Normal: HEENT, Normal: Heart and Normal: Lungs Plan Diagnosis/Plan: Unchanged I have reviewed the history and physical and performed a pertinent physical examination on my patient. No changes have occurred unless specified.
--- NOTE | 2022-05-10 14:51 | PM.OP ---
Brief Operative Note Date of Service: 05/10/22 Pre-op diagnosis: Right knee pain Post-op diagnosis: same Procedure: Temporary right saphenous nerve stimulator Implants: Sprint temporary PNS system Surgeon: Giorgi Kaur MD Anesthesia: local Was an Edger Machine Setter used for this Procedure?: No Estimated blood loss (mL): 1 Pathology: none sent Condition: stable Disposition: same day
--- NOTE | 2022-05-10 16:36 | W.PM.OPN ---
Operative Note Operative Note Date of Service: 05/10/22 Narrative: Peripheral Nerve Stimulation Temporary Lead Placement, Ultrasound-Guided, Saphenous Nerve, Right ? After the risks, benefits and alternatives were discussed with the patient and informed consentwas obtained, patient was placed in the supine position and padded to foster comfort. Appropriate skin and bony landmarks were identified, and pertinent vascular structures were located. The skin overlying the needle entry site was prepped and draped in sterile fashion. Ultrasound was used to identify the femoral artery, the femoral vein and the saphenous nerve. After identifying and marking the intended target along the course of the saphenous nerve, the skin around the planned entry point and the subcutaneous tissues were injected with local anesthetic. An introducer needle and stimulating probe were assembled, inserted and advanced along the intended course of the saphenous; nerve, taking care to maintain the proper depth of insertion as the introducer was advanced under ultrasound guidance. The introducer needle was delivered to a location in proximity to the nerve taking care not to puncture the femoral artery or the vein. At this point, the patient accidentally touched the introducer needle hub so this needle was removed and a new introduce the needle and stimulating probe were assembled and delivered to a location and proximity to the nerve and the artery. At one point, a hypoechoic shadow next to the artery was noticed but color-flow Doppler examination did not conclusively show an arterial bleed. Multiple stimulation parameters were used to deliver stimulation to the saphenous nerve in concert with stimulating at multiple positions around the nerve. Nerve target acquisition was confirmed noting generation of sensory and mild motor effects (paresthesia, muscle tension, etc) in the medial knee, leg and ankle; corresponding to the distribution of the saphenous nerve. Various electrical parameter combinations were tested, and the lead location was adjusted (physically relocated under ultrasound guidance). The stimulating probe was removed from the introducer and a percutaneous lead was guided through the needle and delivered to a location in similar proximity to the nerve. Final location was verified with electrical stimulation and documented. The introducer needle was removed, and the exposed end of the percutaneous lead was attached to an external stimulator unit. Various electrical parameter combinations were again tested until the patient indicated paresthesia and muscle tension overlapping the distribution of the saphenous nerve. After confirming that lead impedance was in the normal range, the external unit was detached, the needle was removed, and the lead was anchored at the skin. The lead was threaded into the connector block and electrical continuity and desired patient response was confirmed. The connector block was attached to the external stimulator unit. The site was covered with a sterile occlusive dressing. A final ultrasound image was taken to document final placement. The patient was observed for stability of vital signs and comfort.
== END 2022-05-10 14:26 | disposition home or self-care (01) ==
PROVIDERS: PCP Family Medicine; Visit Provider Internal Medicine
PROC: (CPT 64555; principal; 2022-05-10 13:00)
DX: M25.561 Pain in right knee (principal); M17.11 Unilateral primary osteoarthritis, right knee; M54.16 Radiculopathy, lumbar region; M71.38 Other bursal cyst, other site; F33.2 Major depressive disorder, recurrent severe without psychotic features; F43.10 Post-traumatic stress disorder, unspecified; Z79.899 Other long term (current) drug therapy; F17.210 Nicotine dependence, cigarettes, uncomplicated
CPT/HCPCS: 64555; C1778

== ENCOUNTER → 2022-05-19 08:09 | Outpatient (BNVA) | payer OTHER, SELFPAY | PROVIDERS: PCP Family Medicine; Visit Provider Nurse Practitioner Family | DX: Z45.89 Encounter for adjustment and management of other implanted devices (principal) | CPT/HCPCS: 99212 ==

== ENCOUNTER → 2022-06-30 10:18 | Outpatient (BNVA) | payer OTHER, SELFPAY | PROVIDERS: PCP Family Medicine; Visit Provider Internal Medicine | DX: M11.20 Other chondrocalcinosis, unspecified site (principal); M25.561 Pain in right knee | CPT/HCPCS: 99212 ==

== ENCOUNTER → 2022-09-21 08:05 | Outpatient (BNVA) | payer OTHER, SELFPAY | PROVIDERS: PCP Family Medicine; Visit Provider Student in an Organized Health Care Education/Training Program | DX: M17.5 Other unilateral secondary osteoarthritis of knee (principal) | CPT/HCPCS: 99202 ==

== ENCOUNTER 2022-10-24 18:23 | Outpatient (REF) | payer OTHER, SELFPAY ==
--- NOTE | ~2022-10-24 | MR_ITS ---
EXAMINATION: MR KNEE WITHOUT CONTRAST, RIGHT CLINICAL INFORMATION: Right knee pain and swelling with posterior radiation. Intermittent pain. COMPARISON: Right knee radiographs dated 05/06/2020. TECHNIQUE: MRI of the knee without contrast was performed using routine sequences on a high-field scanner. FINDINGS: MENISCI: Medial Meniscus: Mild degenerative intrasubstance signal within the posterior horn which appears to contact the periphery of the tibial articular surface, consistent with focal fraying. Mild attenuation/fraying of the posterior root. Lateral Meniscus: Irregular inner margin and tibial articular surface tearing of the posterior horn. LIGAMENTS: Cruciate: Intact. Collateral: Intact. EXTENSOR MECHANISM: Minimal distal quadriceps tendinosis. Intact patellar tendon. ARTICULAR CARTILAGE/BONE: Patellofemoral Compartment: Diffuse, full-thickness patellofemoral articular cartilage loss with bony remodeling, subchondral cystic change, marrow edema, and marginal osteophytes. Medial Compartment: Mild articular cartilage signal heterogeneity and surface irregularity with small marginal osteophytes. Full-thickness articular cartilage fissuring/degenerative cystic change at the posterior non-weightbearing medial femoral condyle in the region of the medial gastrocnemius tendon insertion. Lateral Compartment: Mild articular cartilage signal heterogeneity and surface regularly with small marginal osteophytes. JOINT FLUID AND BURSAE: Small joint effusion and [id number] Houser's cyst with mild synovitis. MUSCLES/TENDONS: Increased T2 signal within the medial gastrocnemius tendon, consistent tendinosis. No transverse tear or retraction. MR/MR knee RT wo con IMPRESSION: 1. Irregular inner margin and tibial articular surface tearing of the lateral meniscus posterior horn. 2. Degenerative intrasubstance signal within the medial meniscus posterior horn which appears to contact the periphery of the tibial articular surface, consistent with focal fraying. Mild attenuation/fraying of the posterior root. 3. Minimal distal quadriceps tendinosis. 4. Severe patellofemoral as well as mild medial and lateral compartment osteoarthritis. Small joint effusion and small to moderate Houser's cyst with mild synovitis. 5. Medial gastrocnemius tendinosis.
== END 2022-10-24 18:24 | disposition home or self-care (01) ==
LOC: HO.MRI 18:23
PROVIDERS: PCP Family Medicine; Visit Provider Student in an Organized Health Care Education/Training Program
DX: M25.561 Pain in right knee (principal)
CPT/HCPCS: 73721

== ENCOUNTER 2022-10-24 19:33 | Emergency (ER) | payer OTHER, SELFPAY ==
[2022-10-24 19:41] VITALS: BMI 23.3
[2022-10-24 19:54] VITALS: BP 154/86; PULSE 72; RESP 16; TEMP 36.8; O2SAT 96
[2022-10-24 20:30] LABS: MANUAL DIFF FLAG NO
[2022-10-24 20:32] LABS: Basophils Percent Auto 0.5 % (0-2); Eosinophils Absolute Auto 0.2 X10*3/uL (0.0-0.4); Eosinophils Percent Auto 2.9 % (0-4); Hematocrit 40.8 % (37.0-47.0); Hemoglobin 13.8 g/dl (12.0-16.0); Imm Gran Abs Auto 0.01 X10*3/uL (0.00-0.03); Imm Gran Pct Auto 0.2 % (0.0-0.4); Lymphocytes Absolute Auto 2.7 X10*3/uL (1.2-4.9); Lymphocytes Percent Auto 45.4 % (20-40); Mean Corpuscular HGB Conc 33.8 g/dl (31.0-35.0); Mean Corpuscular Volume 94.7 fL (80.0-98.0); Mean Platelet Volume 9.9 fL (9.4-12.3); Monocytes Absolute Auto 0.4 X10*3/uL (0.1-1.2); Monocytes Percent Auto 6.4 % (2-11); Neutrophils Absolute Auto 2.6 x10*3/uL (2.0-8.3); Neutrophils Percent Auto 44.6 % (45-73); Platelet Count 330 X10*3/uL (160-400); Red Blood Count 4.31 X10*6/uL (4.20-5.50); Red Cell Distribution Width 12.7 % (11.0-16.0); White Blood Count 5.9 X10*3/uL (4.8-10.8)
[2022-10-24 20:33] LABS: Appearance Urine Clear; Color Urine Yellow; Glucose Urine UA Negative (Negative); Leukocyte Esterase Urine Large (3+) (Negative); Nitrite Urine Negative (Negative); UMIC TRIGGER UA YES; Urine Blood Negative (Negative); Urine Ketones Negative (Negative); Urine Protein Negative (Neg-Trace)
[2022-10-24 20:35] LABS: Bacteria Urine None Seen (None Seen); Hyaline Casts Urine 0-2 /LPF (0-2); RBC Urine 0-2 /HPF (0-2); Squamous Epithelial Cell Urine 0-2 /HPF (0-2)
[2022-10-24 20:42] LABS: Amphetamine Screen Urine Not Detected (Not Detect); Barbiturates, Urine Not Detected (Not Detect); Benzodiazepines Screen Urine Not Detected (Not Detect); Cannabinoid Screen Urine Not Detected (Not Detect); Cocaine Screen Urine Not Detected (Not Detect); Fentanyl, urine Not Detected (Not Detect); Opiate Screen Urine Not Detected (Not Detect); Phencyclidine Screen Urine Not Detected (Not Detect)
[2022-10-24 20:43] LABS: COVID-19 Test Negative (Negative); IDNOW Serial# 08D9AD1C
[2022-10-24 20:46] LABS: Alanine Aminotransferase 18 U/L (0-31); Albumin Level 4.1 g/dL (3.5-5.0); Alkaline Phosphatase 103 U/L (39-117); Anion Gap 13 (12-20); Aspartate Amino Transferase 20 U/L (5-31); Bilirubin Total 0.6 mg/dL (0.0-1.0); Blood Urea Nitrogen 13 mg/dL (9-16); Calcium 9.5 mg/dL (8.4-10.2); Carbon Dioxide 29 mmol/L (22-29); Chloride 103 mmol/L (96-108); Creatinine Clr Calc Pharmacy 60.7; Estimated Glomerular Filt Rate > 60; Ethanol < 10 mg/dL; Glucose Random 103 mg/dL (60-115); Potassium 4.7 mmol/L (3.3-5.1); Sodium 140 mmol/L (135-145); Total Protein 6.9 g/dL (6.5-8.0)
[2022-10-24 21:06] LABS: TSH reflex Free T4 0.98 uIU/mL (0.32-4.0)
--- OUTSIDE RECORDS SUMMARY | 2022-10-24 21:22 | XMS_ITS | Continuity of Care Document ---
Author Name Unknown Organization [facility] Rhina ricci Address [address] [place] [address] [address] [place] [address]- Care Team Providers Care Medical Transcription Radiology Name Role Phone Wendy Rubio MD Primary Care Physician Encounter [facility] [place] Date(s): 10/10/22 - 10/17/22 [facility] [address] [place] [address]- us Attending Physician: Mitchel Boston MD Allergies, Adverse Reactions, Alerts No Known Allergies Medications Cymbalta 20 mg oral enteric coated capsule 1 capsule = 20 mg, By Mouth, Daily, 0 Refills, Maintenance, 10/10/22 9:56:00 EDT, Partial fill uponpatient request if the prescription is for a schedule II opioid drug. Start Date: 10/10/22 Status: Ordered levothyroxine 0.1 mg oral tablet 1 tablet = 0.1 mg, By Mouth, Daily, 0 Refills, Maintenance Start Date: 03/28/11 Status: Ordered Trazodone = 50 mg, By Mouth, 0 Refills, Maintenance, 07/14/14 18:36:09 EST Start Date: 07/14/14 Status: Ordered Vital Signs Most recent to oldest [Reference Range]: 1 Height 160.00 cm (10/10/22 9:54 AM) Social History Social History Type Response Smoking Status Current every day parisa ramires entered on: 08/02/15 Sex Patient Care team information Care Team Personnel Name: Berta Cee MA Position: Enriqueta HOWARD MA Member Role: Lifetime Consulting Physician Name: Wendy Rubio MD Position: Reference Physician Member Role: PCP Address: Address: [address] [place] [phone]- Care Team Related Persons Name: BYORN GUADARRAMA Address: home [address] [place] [id number] Name: PAUL GOMEZ
--- OUTSIDE RECORDS SUMMARY | 2022-10-24 21:22 | XMS_ITS | Continuity of Care Document ---
Author Name Unknown Organization [facility] ricci Address [address] [place] [address] [address] [place] [address]- Care Team Providers Care Composition Siding Worker Name Role Phone Ramiro ALVARADO, Wendy Cerda Primary Care Physician [place] [facility] [place] - 10/08/22 [facility] [address] [place], [place] [address] Allergies, Adverse Reactions, Alerts No Known Allergies Medications Advil 200 mg oral tablet 2 tablet = 400 mg, By Mouth, Every 4 hours, PRN for fever, # 120 tablet, 0 Refills, Maintenance, 12/29/19 14:33:00 EDT, Tablet Start Date: 12/29/19 Status: Ordered Escitalopram = 20 mg, By Mouth, Daily, 0 Refills, Maintenance, 02/28/17 15:44:34 EDT Start Date: 02/28/17 Status: Ordered ibuprofen 600 mg oral tablet 600 mg, 1, tablet, By Mouth, Every 6 hours, for 14 days, # 56 tablet, Refills 0, Tot. Refills 0, Acute 10/17/22 15:46:00 EDT, 10/03/22 15:46:00 EDT, Route to Pharmacy Electronically, [facility]/pharmacy #[id number], Partial fill upon patient request if the prescri... Start Date: 10/03/22 Stop Date: 10/17/22 Status: Ordered Lamictal Tablet 200 mg, By Mouth, 2 times a day, Maintenance, 07/14/14 18:36:18 EST Start Date: 07/14/14 Status: Ordered levothyroxine 0.1 mg oral tablet 1 tablet = 0.1 mg, By Mouth, Daily, 0 Refills, Maintenance Start Date: 9/13/11 Status: Ordered Trazodone = 50 mg, By Mouth, 0 Refills, Maintenance, 07/14/14 18:36:09 EST Start Date: 07/14/14 Status: Ordered Tylenol Extra Strength 500 mg oral tablet 1 tablet = 500 mg, By Mouth, Every 6 hours, PRN as needed for pain, for 14 days, # 50 tablet, 0 Refills, Acute 10/17/22 15:46:00 EDT, 10/03/22 15:46:00 EDT, Tablet, [facility]/pharmacy #[id number], Partial fill upon patient request if the prescription is for a swetha... Start Date: 10/03/22 Stop Date: 10/17/22 Status: Ordered Social History Social History Type Response Smoking Status Current every day parisa ramires entered on: 08/02/15 Sex Patient Care team information Care Team Personnel Name: Berta Cee MA Position: [facility] [place] Member Role: Lifetime Consulting Physician Name: Wendy Rubio MD Position: Reference Physician Member Role: PCP Address: Address: [address] [place] [id number]- Care Team Related Persons Name: BYRON GUADARRAMA Address: home [address] [place] [address] Name: PAUL GOMEZ
--- OUTSIDE RECORDS SUMMARY | 2022-10-24 21:23 | XMS_ITS | Continuity of Care Document ---
Author Name Unknown Organization [facility] ricci Address [address] [place] [address] [address] [place] [address]- Care Team Providers Care Glass Handler Name Role Phone Wendy Rubio MD Primary Care Physician [place] [facility] 09/26/22 - 10/03/22 [facility] [address] [place], [place] [address] Attending Physician: Mitchel Boston MD Referring Physician: Wendy Rubio MD Allergies, Adverse Reactions, Alerts No Known [...] 10/03/22 15:46:00 EDT, Route to Pharmacy Electronically, [facility]/pharmacy #[id number], Partial fill upon patient request if the [...] 10/17/22 15:46:00 EDT, 10/03/22 15:46:00 EDT, Tablet, [facility]/pharmacy #[id number], Partial fill upon patient request if the prescription is for a swetha... Start Date: 10/03/22 Stop Date: 10/17/22 Status: Ordered Social History Social History Type Response Smoking Status Current every day parisa ramires entered on: 08/02/15 Sex Patient Care team information Care Team Personnel Name: Berta Cee MA Position: [facility] Member Role: Lifetime Consulting Physician Name: Wendy Rubio MD Position: Reference Physician Member Role: PCP Address: Address: [address] [place] [id number]- Care Team Related Persons Name: BYRON GUADARRAMA Address: home [address] [place] [id number] Name: PAUL GOMEZ
--- OUTSIDE RECORDS SUMMARY | 2022-10-24 21:23 | XMS_ITS | Continuity of Care Document ---
Author Name Unknown Organization [facility] Rhina ricci Address [address] [place] [address] [address] [place] [address]- Care Team Providers Care Guest History Clerk Name Role Phone Maritza Hurley MD Primary Care Physician Encounter [facility] Date(s): 03/03/21 - 05/15/21 [facility] [address] [place], [place] [address] Attending Physician: Mitchel Boston MD Referring Physician: Maritza Hurley MD Allergies, Adverse Reactions, Alerts Substance Reaction Severity Status NKA Active Medications Advil 200 mg oral tablet 2 tablet = 400 mg, By Mouth, Every 4 hours, PRN for fever, # 120 tablet, 0 Refills, Maintenance, 12/29/19 14:33:00 EDT, Tablet Start Date: 12/29/19 Status: Ordered Escitalopram = 20 mg, By Mouth, Daily, 0 Refills, Maintenance, 02/28/17 15:44:34 EDT Start Date: 02/28/17 Status: Ordered Lamictal Tablet 200 mg, By Mouth, 2 times a day, Maintenance, 07/14/14 18:36:18 EST Start Date: 07/14/14 Status: Ordered levothyroxine 0.1 mg oral tablet 1 tablet = 0.1 mg, By Mouth, Daily, 0 Refills, Maintenance Start Date: 03/28/11 Status: Ordered omeprazole 20 mg oral enteric coated capsule 1 capsule = 20 mg, By Mouth, Daily, # 30 capsule, 0 Refills, Maintenance, 02/28/17 16:03:38, EC Capsule Start Date: 02/28/17 Status: Ordered Topamax 200 mg oral tablet 1 tablet, By Mouth, Daily at bedtime, # 180 tablet, 0 Refills, Maintenance, 03/28/11 12:14:05 EDT, Tablet Start Date: 03/28/11 Status: Ordered Trazodone = 50 mg, By Mouth, 0 Refills, Maintenance, 07/14/14 18:36:09 EST Start Date: 07/14/14 Status: Ordered Social History Social History Type Response Smoking Status Current every day parisa ramires entered on: 08/02/15 Sex
--- NOTE | 2022-10-24 21:42 | ED_ITS ---
HPI - Psych General Chief Complaint: Psychiatric Symptoms Stated Complaint: SI Time Seen by Provider: 10/24/22 19:50 Source: patient Mode of arrival: ambulatory Limitations: no limitations History of Present Illness HPI Narrative: Patient came to the emergency room complaining of anxiety, reporting SI patient was initially here in the hospital getting an MRI of her knee. After getting her MRI done, patient was anxious, had suicidal thoughts. However, patient states that she has not planned, she would never hurt herself. Related Data Home Medications Medication Instructions Recorded Confirmed sumatriptan succinate 50 mg tablet 50 mg PO .prn 01/03/21 10/24/22 acetaminophen 500 mg tablet 500 mg PO Q6H PRN pain 10/24/22 10/24/22 clonazepam 0.5 mg tablet (Klonopin) 0.5 mg PO DAILY PRN anxiety 10/24/22 10/24/22 duloxetine 20 mg capsule,delayed 20 mg PO BID 10/24/22 10/24/22 release gabapentin 300 mg capsule 300 mg PO BEDTIME 10/24/22 10/24/22 ibuprofen 600 mg tablet 600 mg PO Q6H 10/24/22 10/24/22 omeprazole 20 mg capsule,delayed 20 mg PO DAILY 10/24/22 10/24/22 release trazodone 50 mg tablet 50 - 100 mg PO BEDTIME 10/24/22 10/24/22 Allergies Allergy/AdvReac Type Severity Reaction Status Date / Time No Known Allergies Allergy Verified 10/24/22 19:40 Review of Systems Review of Systems: Constitutional : No Weight loss, No Fever, No Chills, No Night Sweats, No Fatigue, No Malaise ENT/Mouth : No Hearing loss, No Ear Pain, No Nasal Congestion, No Sinus Pain, No Hoarseness, No sore throat, No Rhinorrhea, No Swallowing Difficulty Eyes: No Eye Pain, No Swelling, No Redness, No Foreign Body, No Discharge, No Vision Changes Cardiovascular : No Chest Pain, No SOB, No Dyspnea on Exertion, No Orthopnea, No Edema, No Palpitations Respiratory : No Cough, No Sputum, No Wheezing, No Smoke Exposure, No Dyspnea Gastrointestinal : No Nausea, No Vomiting, No Diarrhea, No Constipation, No abdominal Pain, No Hematochezia, No Melena Genitourinary : no irregular bleeding, No Dysuria, No Urinary Frequency, No Hematuria, No Urinary Incontinence, No Urgency, No Flank Pain, No Urinary Flow Changes, No Hesitancy Musculoskeletal : Chronic knee pain, No Myalgias, No Joint Swelling Skin : No Skin Lesions, No rash Neuro : No Weakness, No Numbness, No Paresthesias, No Loss of Consciousness, No Dizziness, No Headache Psych : Anxiety, vague SI, no HI Heme/Lymph: No Bruising, No Bleeding,No Lymphadenopathy Endocrine : No Polyuria, No Polydipsia, No Temperature Intolerance [facility] Past Medical History Medical History Eating disorder Effusion, right knee Headache Hiatal hernia Hip pain Hyperthyroidism Lumbar radiculopathy, right MDD (major depressive disorder), recurrent episode, severe Osteoarthritis of right knee Periscapular pain PTSD (post-traumatic stress disorder) Right medial knee pain Synovial cyst of lumbar facet joint Thoracic degenerative disc disease Surgical History History of cholecystectomy Trigger finger of right hand Family History Family History Father No problems noted. Mother No problems noted. 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 Oriented X3. No acute distress. Eyes: Pupils equal, round and reactive to light. ENT: Pharynx normal. Neck: Normal inspection. Neck supple. No lymph nodes noted. No crepitus CVS: Normal heart rate and rhythm. Pulses normal. Normal S1 and S2 Respiratory: No respiratory distress. Breath sounds normal. No Wheezing. No rales Abdomen: Soft and nontender. No rigidity. No distention. Skin: Skin warm and dry. Normal skin color. Normal skin turgor. Extremities: No lower extremity edema. No Lacerations. No Rash Neuro: Oriented X 3. No motor deficit. No sensory deficit. Moving all extremities. No slurred speech. CN 2 through 12 grossly intact Psych: calm, cooperative, normal affect Medical Decision Making Medical Decision Making [facility] Narrative: -patient has a UTI, 1st dose of cefuroxime p.o. given in the emergency room -care team consult pending -physician observation started at 20:00 Differential Diagnosis Differential Diagnoses: The differential diagnosis associated with the presentation includes (Anxiety, depression, suicide ideation) Lab Data [facility] Lab Attestation statement: I reviewed the patient's lab results. 10/24/22 20:22 10/24/22 20:22 Labs: Lab Results 10/24/22 10/24/22 10/24/22 Range/Units 20:11 20:11 20:11 WBC (4.8-10.8) X10*3/uL RBC (4.20-5.50) X10*6/uL Hgb (12.0-16.0) g/dl Hct (37.0-47.0) % MCV (80.0-98.0) fL MCH (27.0-33.0) pg MCHC (31.0-35.0) g/dl RDW (11.0-16.0) % Plt Count (160-400) X10*3/uL MPV (9.4-12.3) fL Immature Gran % (Auto) (0.0-0.4) % Neut % (Auto) (45-73) % Lymph % (Auto) (20-40) % Will % (Auto) (2-11) % Eos % (Auto) (0-4) % Baso % (Auto) (0-2) % Lymph # (Auto) (1.2-4.9) X10*3/uL Will # (Auto) (0.1-1.2) X10*3/uL Eos # (Auto) (0.0-0.4) X10*3/uL Baso # (Auto) (0.0-0.2) X10*3/uL Abs Immat Gran (auto) (0.00-0.03) X10*3/uL Absolute Neuts (auto) (2.0-8.3) x10*3/uL Absolute Nucleated RBC (0.0-0.012) X10*3/uL Nucleated RBC % (auto) (0.0-0.2) /100WBC Sodium (135-145) mmol/L Potassium (3.3-5.1) mmol/L Chloride (96-108) mmol/L Carbon Dioxide (22-29) mmol/L Anion Gap (12-20) BUN (9-16) mg/dL Creatinine (0.5-1.4) mg/dL Estim Creat Clear Calc Estimated GFR Random Glucose (60-115) mg/dL Calcium (8.4-10.2) mg/dL Total Bilirubin (0.0-1.0) mg/dL AST (5-31) U/L ALT (0-31) U/L Alkaline Phosphatase (39-117) U/L Total Protein (6.5-8.0) g/dL Albumin (3.5-5.0) g/dL TSH (0.32-4.0) uIU/mL Urine Color Yellow Urine Appearance Clear Urine pH 8.0 (5.0-9.0) Ur Specific [place] 1.010 (1.005-1.025) Urine Protein Negative (Neg-Trace) mg/dL Urine Glucose (UA) Negative (Negative) mg/dL Urine Ketones Negative (Negative) mg/dL Urine Blood Negative (Negative) Urine Nitrite Negative (Negative) Ur Leukocyte Esterase Large (3+) H (Negative) Urine RBC 0-2 (0-2) /HPF Urine WBC 11-20 H (0-5) /HPF Ur Squamous Epith Cells 0-2 (0-2) /HPF Urine Bacteria None Seen (None Seen) Hyaline Casts 0-2 (0-2) /LPF Urine Opiates Screen Not Detected (Not Detect) Urine Fentanyl Screen Not Detected (Not Detect) Ur Barbiturates Screen Not Detected (Not Detect) Ur Phencyclidine Scrn Not Detected (Not Detect) Ur Amphetamines Screen Not Detected (Not Detect) U Benzodiazepines Scrn Not Detected (Not Detect) Urine Cocaine Screen Not Detected (Not Detect) U Marijuana (THC) Screen Not Detected (Not Detect) Ethyl Alcohol mg/dL COVID-19 ([facility]) Negative (Negative) COVID-19 Clin Com See Note 10/24/22 10/24/22 10/24/22 Range/Units 20:22 20:22 20:22 WBC 5.9 (4.8-10.8) X10*3/uL RBC 4.31 (4.20-5.50) X10*6/uL Hgb 13.8 (12.0-16.0) g/dl Hct 40.8 (37.0-47.0) % MCV 94.7 (80.0-98.0) fL MCH 32.0 (27.0-33.0) pg MCHC 33.8 (31.0-35.0) g/dl RDW 12.7 (11.0-16.0) % Plt Count 330 (160-400) X10*3/uL MPV 9.9 (9.4-12.3) fL Immature Gran % (Auto) 0.2 (0.0-0.4) % Neut % (Auto) 44.6 L (45-73) % Lymph % (Auto) 45.4 H (20-40) % Will % (Auto) 6.4 (2-11) % Eos % (Auto) 2.9 (0-4) % Baso % (Auto) 0.5 (0-2) % Lymph # (Auto) 2.7 (1.2-4.9) X10*3/uL Will # (Auto) 0.4 (0.1-1.2) X10*3/uL Eos # (Auto) 0.2 (0.0-0.4) X10*3/uL Baso # (Auto) 0.0 (0.0-0.2) X10*3/uL Abs Immat Gran (auto) 0.01 (0.00-0.03) X10*3/uL Absolute Neuts (auto) 2.6 (2.0-8.3) x10*3/uL Absolute Nucleated RBC 0.000 (0.0-0.012) X10*3/uL Nucleated RBC % (auto) 0.0 (0.0-0.2) /100WBC Sodium 140 (135-145) mmol/L Potassium 4.7 (3.3-5.1) mmol/L Chloride 103 (96-108) mmol/L Carbon Dioxide 29 (22-29) mmol/L Anion Gap 13 (12-20) BUN 13 (9-16) mg/dL Creatinine 0.74 (0.5-1.4) mg/dL Estim Creat Clear Calc 60.7 Estimated GFR > 60 Random Glucose 103 (60-115) mg/dL Calcium 9.5 (8.4-10.2) mg/dL Total Bilirubin 0.6 (0.0-1.0) mg/dL AST 20 (5-31) U/L ALT 18 (0-31) U/L Alkaline Phosphatase 103 (39-117) U/L Total Protein 6.9 (6.5-8.0) g/dL Albumin 4.1 (3.5-5.0) g/dL TSH 0.98 (0.32-4.0) uIU/mL Urine Color Urine Appearance Urine pH (5.0-9.0) Ur Specific [place] (1.005-1.025) Urine Protein (Neg-Trace) mg/dL Urine Glucose (UA) (Negative) mg/dL Urine Ketones (Negative) mg/dL Urine Blood (Negative) Urine Nitrite (Negative) Ur Leukocyte Esterase (Negative) Urine RBC (0-2) /HPF Urine WBC (0-5) /HPF Ur Squamous Epith Cells (0-2) /HPF Urine Bacteria (None Seen) Hyaline Casts (0-2) /LPF Urine Opiates Screen (Not Detect) Urine Fentanyl Screen (Not Detect) Ur Barbiturates Screen (Not Detect) Ur Phencyclidine Scrn (Not Detect) Ur Amphetamines Screen (Not Detect) U Benzodiazepines Scrn (Not Detect) Urine Cocaine Screen (Not Detect) U Marijuana (THC) Screen (Not Detect) Ethyl Alcohol < 10 mg/dL COVID-19 ([facility]) (Negative) COVID-19 Clin Com Discharge Plan Discharge Clinical Impression: UTI (urinary tract infection), Depression Patient Disposition: Still a Patient Prescriptions: No Action trazodone 50 mg tablet 50 - 100 mg PO BEDTIME clonazepam [Klonopin] 0.5 mg tablet 0.5 mg PO DAILY PRN (Reason: anxiety) acetaminophen 500 mg tablet 500 mg PO Q6H PRN (Reason: pain) gabapentin 300 mg capsule 300 mg PO BEDTIME omeprazole 20 mg capsule,delayed release(DR/EC) 20 mg PO DAILY ibuprofen 600 mg tablet 600 mg PO Q6H duloxetine 20 mg capsule,delayed release(DR/EC) 20 mg PO BID sumatriptan succinate 50 mg tablet 50 mg PO .prn
[2022-10-25] MEDS: traZODone HCL 50 MG TABLET PO (00:12)
[2022-10-25 06:22] VITALS: BP 130/82; PULSE 72; RESP 15; TEMP 36.4; O2SAT 98
--- NOTE | 2022-10-25 06:23 | PC.NURSE ---
Patient slept through the night, no distress observed/reported, behavior non concerning, patient engaged well with care team assessment, disposition is katie follow-up, patient is placed on section 12 and will be revaluated by care team in the morning, med rec completed/pending provider's approval, VSS, will continue to monitor.
[2022-10-25 07:44] VITALS: BP 127/79; PULSE 76; RESP 16; TEMP 36.4; O2SAT 99
--- NOTE | 2022-10-25 07:45 | PC.NURSE ---
Pt awake, requesting to speak with Care Team in regards to discharged. Pt adamantly denies si/hi. Phone provided, offered medications to relax her which patient declined. In room, resting quietly.
--- NOTE | 2022-10-25 09:26 | PHA.MEDREC ---
Pharmacy Consult ? Medication Reconciliation Pharmacy has completed the medication reconciliation. Med rec done by [facility] reviewed by pharmacy. It was missing levothyroxine (confirmed she is still on it with patient). Med added to list and provider notified.
--- NOTE | 2022-10-25 09:48 | PC.NURSE ---
Care Team attempted to meet with patient, pt sleepy, requesting to come back to talk to them later. Potential discharge per care team following re-evaluation.
--- NOTE | 2022-10-25 10:58 | PC.NURSE ---
Care Team in to re-evaluate patient.
[2022-10-25] MEDS: DULoxetine HCl 20 MG CAPSULE.DR PO (11:38)
[2022-10-25] MEDS: Levothyroxine Sodium 100 MCG TABLET PO (11:38)
[2022-10-25] MEDS: Omeprazole 20 MG CAPSULE.DR PO (11:38)
--- NOTE | 2022-10-25 16:53 | MHC.CARE ---
PHP referral sent to [facility] @[id number], RAD Team to f/u 10/26 with PHP about referral
== END 2022-10-25 12:01 | disposition home or self-care (01) ==
PROVIDERS: Emergency Medicine; Emergency Provider Emergency Medicine
DX: F33.1 Major depressive disorder, recurrent, moderate (principal); R45.851 Suicidal ideations; N39.0 Urinary tract infection, site not specified; Z20.822 Contact with and (suspected) exposure to COVID-19; Z20.828 Contact with and (suspected) exposure to other viral communicable diseases; Z79.899 Other long term (current) drug therapy
CPT/HCPCS: 36415; 80053; 80307; 81001; 82077; 84443; 85025; 87635; 99284; S9485

== ENCOUNTER 2022-12-05 09:00 | Outpatient (RCR) | payer OTHER, SELFPAY ==
--- NOTE | 2022-11-22 07:24 | HO.PHP ---
The client was scheduled to start the program today . She called and asked to start tomorrow because she didn't sleep last night and is very tired. She states that she was anxious and has a back ache that interfered with sleep.
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
--- NOTE | 2022-11-24 08:19 | HO.PHP ---
The clients case was reviewed and opened in treatment team
--- NOTE | 2022-11-24 14:22 | HO.PHP ---
The client called out because she is not feeling well. She states that she will be in Sunday.
[2022-11-27 11:37] VITALS: BP 120/70; PULSE 80; TEMP 36.9; BMI 25.4
--- NOTE | 2022-11-27 12:08 | PC.ADMIT ---
Patient is a 66 year old female who was referred to [facility] by [facility] were she was admitted d/t increased depression and suicidal thoughts as she had been attending a trauma group and was feeling triggered. She also reports increased anxiety. Patient reportedly was having thoughts to jump off a 5th story high porch thus went to the hospital for help. Patient also struggles with chronic back pain. Patient reportedly has a history of an intentional overdose on medications in 2020. See Integrative Assessment for more information. Patient is alert and oriented x4. Calm and cooperative. Denied SI. Report she has been picking at the skin on her hands d/t anxiety. She presents with depressed mood and anxious affect. Reports struggling with back pain and is unsure if PHP is a good fit for her at this time. She reports she goes to Yoga and other self help activities on Wednesdays and feels she has missed this for over a month and thinks she wants to continue this. She wants to stay the remainder of the day to see how she feels as part of her wants to continue PHP.
--- NOTE | 2022-11-27 13:03 | PC.NURSE ---
Medications reconciled with patient and D/C information from [facility]. Patient reports she has not increased Duloxetine to 60 mg as recommended and is not taking scheduled Seroquel as she does not like the way it makes her feel. PHP prescriber Ileana Akbar CNP is aware.
--- NOTE | 2022-11-29 11:26 | HO.PHPPROGNO ---
Subjective Subjective Date of Service: 11/29/22 Reason For Visit: depression Medical Problems Affecting Mental Status: No Interim History: Less depressed. No SI reported, no safety concerns. Benefitting from program, participated in groups actively. Has stopped taking Seroquel after speaking with her outpatient psychiatrist. Satisfied with current medication regimen. Medication Compliance: Yes Side effects from medications: No Attending Groups: Yes Review of Systems Acute medical concerns: No Medical Review of Systems: unchanged Review of Systems Review of Systems Yes all other systems are reviewed and are negative Constitutional: Reports no additional constitutional complaints Mental Status Exam Mental Status Exam Narrative: NAD Patient Appearance: Well Grooomed Patient Orientation: Person, Place, Time and Situation Level of Consciousness: Awake and Appropriate Patient Behavior: Appropriate, Cooperative and Good Eye Contact Mood Description: Depressed (some depression, feels improving) Affect Description: Appropriate Patient Cognition Impaired: No Ability to Follow Directions: Excellent Speech Pattern: Clear and Appropriate Memory Description: Intact Hallucinations: None Delusions: Not Present Thought Process: Intact Thought Content: positive for Intact Depressive Symptoms: Increased Anxiety, Difficulty Sleeping, Loss of Int. in Activity and Back Pain Judgement: Fair Diagnostics Vital Signs (24Hr): BMI result Body Mass Index 25.4 Assessment & Plan Assessment & Plan (1) MDD (major depressive disorder), recurrent episode, severe: Status: Chronic Code(s): F33.2 - Major depressive disorder, recurrent severe without psychotic features Assessment and Plan: Less depressed. She reports she is benefitting from program, participating in groups actively. Has stopped taking Seroquel after speaking with her outpatient psychiatrist. She was taking only 12.5 mg at bedtime, states that she was concerned about this medication as it has multiple side effects. Satisfied with current medication regimen, does not feel she needs any medication changes at this time. She has been researching alternative medication choices, has gone to [facility] in [place] in the past, considering possibly going there again to be treated as she has hypothyroidism. She has also been researching other types of treatment. (2) PTSD (post-traumatic stress disorder): Status: Chronic Code(s): F43.10 - Post-traumatic stress disorder, unspecified Plan 1. Continue with current [facility] plan of care. 2. Continue with current medication regimen as prescribed by outpatient provider. 3. Follow-up as per protocol. Patient educated on: diagnosis, medication risk/benefits and therapeutic strategies Guardian/Caregiver educated on: diagnosis, medication risk/benefits and therapeutic strategies Informed Consent: understands Reason for contiued partial hosp. stay Substantial Risk for: harm to self, inability to function and rapid decompensation Certification I certify that partial hospital treatment is medically necessary due to the symptoms and problems resulting from the patient's mental illness and the failure to treat the patient at the partial hospital level of care would likely result in the patient requiring inpatient psychiatric care which could not be prevented at a less intensive level of care. Total time managing care of this patient today __20__ minutes. Discharge Plan Discharge Attending provider: Julian Monteiro Medications: Discontinued quetiapine 25 mg Tablet 12.5 mg PO BEDTIME Rx Instructions: Take 1/2 tab at bedtime. May also take 1/2 tab daily as needed for anxiety. No Action trazodone 50 mg tablet 25 - 100 mg PO BEDTIME Rx Instructions: 1/2 to two tabs Bedtime omeprazole 20 mg capsule,delayed release(DR/EC) 20 mg PO BID duloxetine 20 mg capsule,delayed release(DR/EC) 20 mg PO BID Patient Comments: Patient reports she has not increased to 60 mg. levothyroxine 100 mcg tablet 100 mcg PO DAILY@0600 multivitamin Tablet 1 tab PO DAILY valacyclovir 1 gram tablet 1,000 mg PO DAILY lamotrigine 25 mg tablet 50 mg PO QAM sumatriptan succinate 50 mg tablet 50 mg PO Q2H MDD 200 mg PRN (Reason: Migraine Headache)
--- NOTE | 2022-12-05 10:47 | HO.PHPPROGNO ---
Subjective Subjective Date of Service: 12/05/22 Reason For Visit: depression Medical Problems Affecting Mental Status: No Interim History: Reports that she feels much improved. Reports depression symptoms diminished greatly. Feels ready for discharge from [facility] at this time. Plans to leave for [facility] soon, will be staying there for 6 weeks this summer. No SI, no safety concerns. Medication Compliance: Yes Side effects from medications: No Attending Groups: Yes Review of Systems Acute medical concerns: No Medical Review of Systems: unchanged Review of Systems Review of Systems Yes all other systems are reviewed and are negative Constitutional: Reports no additional constitutional complaints Mental Status Exam Mental Status Exam Narrative: NAD Presents with bright mood and affect. Patient Appearance: Well Grooomed Patient Orientation: Person, Place, Time and Situation Level of Consciousness: Awake and Appropriate Patient Behavior: Appropriate, Cooperative and Good Eye Contact Mood Description: Calm and Cheerful Affect Description: Appropriate Patient Cognition Impaired: No Ability to Follow Directions: Excellent Speech Pattern: Clear and Appropriate Memory Description: Intact Hallucinations: None Delusions: Not Present Thought Process: Intact Thought Content: positive for Intact Judgement: Good Diagnostics Vital Signs (24Hr): BMI result Body Mass Index 25.4 Assessment & Plan Assessment & Plan (1) MDD (major depressive disorder), recurrent episode, severe: Status: Chronic Code(s): F33.2 - Major depressive disorder, recurrent severe without psychotic features Assessment and Plan: Reports mood is stable, no longer feeling overly stressed or depressed. Able to express hope for the future. Has found program helpful. Feels ready for discharge from [facility] at this time. (2) PTSD (post-traumatic stress disorder): Status: Chronic Code(s): F43.10 - Post-traumatic stress disorder, unspecified Assessment and Plan: No exacerbation of symptoms reported during encounter. Plan 1. Patient appears stable for discharge from [facility] at this time. 2. Patient to follow-up with outpatient providers going forward. Patient educated on: diagnosis, medication risk/benefits and therapeutic strategies Informed Consent: understands Reason for contiued partial hosp. stay Substantial Risk for: stable for discharge Certification I certify that partial hospital treatment is medically necessary due to the symptoms and problems resulting from the patient's mental illness and the failure to treat the patient at the partial hospital level of care would likely result in the patient requiring inpatient psychiatric care which could not be prevented at a less intensive level of care. Total time managing care of this patient today __15__ minutes. Discharge Plan Discharge Attending provider: Julian Monteiro Medications: Discontinued quetiapine 25 mg Tablet 12.5 mg PO BEDTIME Rx Instructions: Take 1/2 tab at bedtime. May also take 1/2 tab daily as needed for anxiety. No Action trazodone 50 mg tablet 25 - 100 mg PO BEDTIME Rx Instructions: 1/2 to two tabs Bedtime omeprazole 20 mg capsule,delayed release(DR/EC) 20 mg PO BID duloxetine 20 mg capsule,delayed release(DR/EC) 20 mg PO BID Patient Comments: Patient reports she has not increased to 60 mg. levothyroxine 100 mcg tablet 100 mcg PO DAILY@0600 multivitamin Tablet 1 tab PO DAILY valacyclovir 1 gram tablet 1,000 mg PO DAILY lamotrigine 25 mg tablet 50 mg PO QAM sumatriptan succinate 50 mg tablet 50 mg PO Q2H MDD 200 mg PRN (Reason: Migraine Headache) Stand Alone Forms: Patient Portal Discharge page Patient Education: Depression (DC)
--- NOTE | 2022-12-08 08:30 | HO.PHP ---
I called and left a message a message for Justin Gonzalez [facility] re clients discharge
== END 2022-12-05 23:59 | disposition home or self-care (01) ==
LOC: HO.PHPA 09:00
PROVIDERS: Visit Provider Psychiatry & Neurology Psychiatry
DX: F33.2 Major depressive disorder, recurrent severe without psychotic features (principal); F43.10 Post-traumatic stress disorder, unspecified; Z79.899 Other long term (current) drug therapy
CPT/HCPCS: 90791; 90853

== ENCOUNTER 2024-01-09 14:46 | Outpatient (AMB) | payer OTHER, BC, SELFPAY ==
--- NOTE | 2024-01-09 14:52 | A.OFFVIS_ITS ---
Vital Signs 01/09/24 14:57 Weight 130 lb 1.164 oz BP 118/74 Blood Pressure Location Rt brachial Position Sitting Intake Visit Reasons: abnormal lab/lm Intake Note: Pt seen today for follow up. Reports abnormal labs done with PCP Bridgette BONILLA, advised to follow up here. Chief Operating Engineer Required: No Accompanied by: Self / Same As Patient Allergies No Known Allergies Allergy (Verified 01/09/24 14:58) Medication List - Last Reconciled 01/09/24 by Roscoe Avery MD duloxetine 20 mg PO DAILY levothyroxine 100 mcg PO DAILY@0600 multivitamin 1 tab PO DAILY sumatriptan succinate 50 mg PO Q2H PRN MDD 200 mg trazodone 25 - 100 mg PO BEDTIME HPI Comments Details: This is a 68-year-old female who returns for follow-up. She was evaluated by me last year for right knee chondrocalcinosis and intermittent episodes of effusion. I did a right knee MRI which showed a meniscal tear. She eventually had right knee meniscal surgery 4 months ago with some improvement. She continues to do PT for her right knee. She is back for another issue. She states that since last year when she was in [place], while walking she was have episodes of her feet spasming up, getting cramped up in a dorsiflexed position associated with pain in her calves and the back of her thighs. She has also had episode affecting her hands. She took magnesium without much benefit. She denies any swollen joints. She did not take anything for pain like Tylenol or Advil. [facility] Medical History Chronic constipation Hypothyroidism Right medial knee pain Eating disorder MDD (major depressive disorder), recurrent episode, severe PTSD (post-traumatic stress disorder) Thoracic degenerative disc disease Synovial cyst of lumbar facet joint Periscapular pain Lumbar radiculopathy, right Headache Osteoarthritis of right knee Effusion, right knee Hiatal hernia Hip pain Surgical History Trigger finger of right hand History of cholecystectomy Family History Father No problems noted. Mother No problems noted. 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 Sexual orientation: Straight/Heterosexual Review of Systems Musc Reports stiffness Physical Exam Vital Signs: Last Vital Signs BP 118/74 01/09/24 14:57 Const General: cooperative, healthy appearing and comfortable Nutritional Appearance: average body habitus Orientation/consciousness: patient oriented x3 Limitations: no limitations HEENT Head: Yes normocephalic and Yes atraumatic Mouth: moist mucous membranes Resp Effort & Inspection: normal respiratory effort and able to speak in complete sentences Neuro General: patient oriented x3 Extrem Other: Mild osteoarthritic changes of both hands, no active synovitis No active synovitis both ankles and feet Normal nailfold capillaroscopy Results Reviewed Results Reviewed: Labs 11/2023? RF negative? CRP normal? Magnesium 2.1 normal? CMP unremarkable? CBC unremarkable? ESR 29? Assessment & Plan Assessment & Plan (1) Muscle spasm: Code(s): M62.838 - Other muscle spasm Category: Medical Plan: This is a 68-year-old female who presents for evaluation of episodes of her toes and fingers getting stuck in a flexed position associated with muscle spasm. On exam I do not see any active synovitis. Likely patient has intermittent muscle spasms. We discussed different treatments such as stretching, relaxation techniques, squeeze ball, sugar free electrolyte drinks. Patient is also i nterested in massage. Massage might also be helpful Follow-up as needed Plan I spent 16 minutes reviewing patient's chart, evaluating patient, counseling patient and documenting in the chart Coding Level of Care Code Est Pt Level 3 (65964) Diagnoses Muscle spasm M62.838
[2024-01-09 14:57] VITALS: BP 118/74
== END 2024-01-09 15:30 ==
PROVIDERS: Visit Provider Student in an Organized Health Care Education/Training Program
DX: M62.838 Other muscle spasm (principal)
CPT/HCPCS: 99213

== ENCOUNTER → 2024-01-09 14:46 | Outpatient (BNVA) | payer OTHER, SELFPAY | PROVIDERS: Visit Provider Student in an Organized Health Care Education/Training Program | DX: M62.838 Other muscle spasm (principal) | CPT/HCPCS: 99212 ==

== ENCOUNTER → 2024-12-01 10:15 | Outpatient (BNV) | payer OTHER, BC, SELFPAY | PROVIDERS: Visit Provider Psychiatry & Neurology Psychiatry | DX: F43.10 Post-traumatic stress disorder, unspecified (principal); F33.2 Major depressive disorder, recurrent severe without psychotic features | CPT/HCPCS: 99204 ==

== ENCOUNTER 2024-12-05 09:45 | Outpatient (RCR) | payer OTHER, BC, SELFPAY ==
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
[2024-12-01 12:57] VITALS: BMI 25.6
[2024-12-01 12:58] VITALS: BP 120/70; PULSE 80; TEMP 37
--- NOTE | 2024-12-01 13:44 | PC.ADMIT ---
Patient is a 69 year old single female who self referred to [facility] secondary to increased depression with suicidal thoughts with no plan or intent to harm herself. Patient reports she went on a trip to [place] and when she came home she went into a deep depression. She stated while in [place] she felt she was able to get away from history of trauma however when she came home she reported increased symptoms. She reports difficulty getting out of bed and having difficulty functioning. Patient stated she feels better now knowing she is in the program. Patient has a history of self harm my scratching self or banging her head. Last time she self harmed was a week ago. Patient reports she currently has been seeing a man on and off. Patient is alert and oriented x4. She is calm and cooperative. She denied SI, no HI. She was given a copy of her safety plan if needed. Patient denied any issues with substance use. She reports taking medications daily as prescribed. Medications updated with patient and patient's pharmacy. Supports My therapist, massage therapist. I have a boyfriend now on and off.
--- NOTE | 2024-12-04 08:37 | PC.NURSE ---
Татьяна called out sick. Reports she has a head cold and a hacking cough. Advised her to f/u with PCP if symptoms worsen or do not improve. Increase fluid intake. She is aware that [facility] staff Mely will be reaching out to her regarding possible discharge and reassessment next week.
== END 2024-12-05 23:59 | disposition home or self-care (01) ==
LOC: HO.PHPA 09:45
PROVIDERS: Visit Provider Psychiatry & Neurology Psychiatry
DX: F43.10 Post-traumatic stress disorder, unspecified (principal); F33.2 Major depressive disorder, recurrent severe without psychotic features
CPT/HCPCS: 90791; 90853

== ENCOUNTER 2024-12-09 09:48 | Outpatient (RCR) | payer OTHER, BC, SELFPAY | END 2024-12-09 23:59 | disposition home or self-care (01) | LOC: HO.PHPA 09:48 | PROVIDERS: Visit Provider Psychiatry & Neurology Psychiatry | DX: F32.9 Major depressive disorder, single episode, unspecified (principal) ==

== ENCOUNTER → 2024-12-19 08:36 | Outpatient (REF) | payer OTHER, SELFPAY ==
--- NOTE | 2024-12-19 08:42 | ECG_ITS ---
Test Reason : qtc check Blood Pressure : */* mmHG Vent. Rate : 80 BPM Atrial Rate : 80 BPM P-R Int : 142 ms QRS Dur : 84 ms QT Int : 364 ms P-R-T Axes : 66 -22 29 degrees QTcB Int : 419 ms Normal sinus rhythm Normal ECG When compared with ECG of 03-Oct-2011 12:48, No significant change was found Referred By: Viridiana Valdez Electronically Signed By: EUSEBIO OCHOA
[2024-12-19 09:29] LABS: MANUAL DIFF FLAG NO
[2024-12-19 09:30] LABS: Basophils Percent Auto 0.8 % (0-2); Eosinophils Absolute Auto 0.3 X10*3/uL (0.0-0.4); Eosinophils Percent Auto 7.5 % (0-4); Hematocrit 36.4 % (37.0-47.0); Hemoglobin 12.3 g/dl (12.0-16.0); Imm Gran Abs Auto 0.02 X10*3/uL (0.00-0.03); Imm Gran Pct Auto 0.5 % (0.0-0.4); Lymphocytes Absolute Auto 1.8 X10*3/uL (1.2-4.9); Lymphocytes Percent Auto 45.4 % (20-40); Mean Corpuscular HGB Conc 33.8 g/dl (31.0-35.0); Mean Corpuscular Hemoglobin 31.8 pg (27.0-33.0); Mean Corpuscular Volume 94.1 fL (80.0-98.0); Mean Platelet Volume 9.7 fL (9.4-12.3); Monocytes Absolute Auto 0.3 X10*3/uL (0.1-1.2); Monocytes Percent Auto 7.5 % (2-11); Neutrophils Absolute Auto 1.5 x10*3/uL (2.0-8.3); Neutrophils Percent Auto 38.3 % (45-73); Platelet Count 312 X10*3/uL (160-400); Red Blood Count 3.87 X10*6/uL (4.20-5.50); Red Cell Distribution Width 12.6 % (11.0-16.0)
[2024-12-19 09:52] LABS: Estimated Average Glucose 105 mg/dL; Hemoglobin A1C 109.0513 umol/L; Hemoglobin A1c % 5.3 % (<6.0); Total Hemoglobin (HGBA1C) 3190.2422 umol/L
[2024-12-19 09:58] LABS: Alanine Aminotransferase 23 U/L (0-31); Albumin Level 4.2 g/dL (3.5-5.0); Alkaline Phosphatase 114 U/L (39-117); Anion Gap 12 (12-20); Aspartate Amino Transferase 26 U/L (5-31); Bilirubin Total 0.7 mg/dL (0.0-1.0); Blood Urea Nitrogen 11 mg/dL (9-16); Calcium 9.6 mg/dL (8.4-10.2); Carbon Dioxide 30 mmol/L (22-29); Chloride 101 mmol/L (96-108); Cholesterol 270 mg/dL (<200); Estimated Glomerular Filt Rate > 60; Glucose Fasting 90 mg/dL (60-99); HDL Cholesterol 85 mg/dL (>40); Iron 105 mcg/dL (30-160); LDL Cholesterol Calculated 167 mg/dL (<100); Magnesium 2.1 mg/dL (1.6-2.6); Percent Iron Saturation 34 % (15-50); Sodium 139 mmol/L (135-145); Total Iron Binding Capacity 305 mcg/dL (228-428); Total Protein 7.2 g/dL (6.5-8.0); Triglycerides 93 mg/dL (<150); Unsaturated Iron Binding 200 ug/dL
[2024-12-19 10:11] LABS: Rheumatoid Factor < 13.0 IU/mL (<15.0)
[2024-12-19 10:16] LABS: Ferritin 58 ng/mL (10-250); Free T4 (Free Thyroxine) 1.07 ng/dL (0.71-1.85); Parathyroid Hormone Intact 85.4 pg/mL (8.7-77.1); Thyroid Stimulating Hormone 1.84 uIU/mL (0.32-4.0); Vitamin D 25-OH Total 35.8 ng/mL (>30)
[2024-12-19 10:34] LABS: Folate 12.3 ng/mL (> or = 4.0); Vitamin B12 562 pg/mL (200-900)
[2024-12-19 10:42] LABS: Erythrocyte Sedimentation Rate 28 MM/HR (0-20)
[2024-12-19 10:44] LABS: Appearance Urine Cloudy; Color Urine Yellow; Glucose Urine UA Negative (Negative); Leukocyte Esterase Urine Large (3+) (Negative); Nitrite Urine Negative (Negative); UMIC TRIGGER UA YES; Urine Blood Negative (Negative); Urine Ketones Negative (Negative); Urine Protein Trace mg/dL (Neg-Trace)
[2024-12-19 11:02] LABS: Bacteria Urine 2+ (None Seen); Hyaline Casts Urine 0-2 /LPF (0-2); RBC Urine 0-2 /HPF (0-2); Squamous Epithelial Cell Urine 0-2 /HPF (0-2); WBC Urine >50 /HPF (0-5)
[2024-12-20 04:29] LABS: Triiodothyronine T3 Free 2.8 pg/mL (2.3-4.2); Triiodothyronine T3 Total 79 ng/dL (76-181)
[2024-12-22 19:14] LABS: Homocysteine 8.9 umol/L (< or = 13.4)
[2024-12-22 21:29] LABS: Lyme Abs Screen <0.90 index
[2024-12-23 06:14] LABS: Clomipramine 79 mcg/L (50-250); Clomipramine + Desmethylclom 182 mcg/L (200-600); Desmethylclomipramine 103 mcg/L (150-350)
[2024-12-23 08:19] LABS: Triiodothyronine T3 Reverse 12 ng/dL (8-25)
[2024-12-23 09:29] LABS: Anti Nuclear Antibody Screen NEGATIVE (NEGATIVE)
[2024-12-24 14:28] LABS: Vitamin B1 16 nmol/L (8-30)
[2024-12-25 05:33] LABS: Vitamin B6 19.1 ng/mL (2.1-21.7)
== END ==
LOC: HO.CARD 08:36
PROVIDERS: PCP Nurse Practitioner; Visit Provider Psychiatry & Neurology Psychiatry
DX: F39 Unspecified mood [affective] disorder (principal); F41.0 Panic disorder [episodic paroxysmal anxiety]; R53.82 Chronic fatigue, unspecified; Z13.6 Encounter for screening for cardiovascular disorders; Z13.1 Encounter for screening for diabetes mellitus
CPT/HCPCS: 36415; 80053; 80061; 80335; 81001; 82306; 82607; 82728; 82746; 83036; 83090; 83540; 83735; 83970; 84100; 84207; 84425; 84439; 84443; 84480; 84481; 84482; 85025; 85652; 86038; 86431; 86617; 86618; 93005

== ENCOUNTER → 2024-12-19 08:42 | Outpatient (BNV) | payer OTHER, SELFPAY | PROVIDERS: PCP Nurse Practitioner; Visit Provider Internal Medicine | DX: Z13.6 Encounter for screening for cardiovascular disorders (principal) | CPT/HCPCS: 93010 ==

== ENCOUNTER 2024-12-29 11:00 | Outpatient (RCR) | payer OTHER, BC, SELFPAY ==
[2024-12-15 11:40] VITALS: BP 130/70; PULSE 76; TEMP 36.7
[2024-12-15 11:44] VITALS: BMI 59.1
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
--- NOTE | 2024-12-15 14:15 | HO.PHP ---
[facility] staff member followed up with Татьяна as she requested to speak with the clinician. Татьяна was engaging in conversation around how she is triggered by an individual in the group setting due to there heavy breathing from anxiety. Татьяна stated that she feels she takes on others anxiety and it is making it challenging for her. Татьяна then mentioned when she tried to reflect back on why she was here, she just was getting triggered by this individual cause the breathing continue. Татьяна then started sharing other triggers that occurred within the group setting because she related to individuals trauma. Татьяна presented as tangential in which she switched from talking about her trauma, to her relationship with her siblings, and then to her having an issue with an individual who works at the [facility] and now doesn't attend even though it helped her tremendously. Татьяна then was becoming overwhelmed with sharing what she is going through and stated she had just processed all this with Mercedes. [facility] staff member informed Татьяна that if it is too much we don't have to review at this time. Татьяна said it was fine and continued to express her concerns and frustrations. [facility] staff member engaged in reflective listening.
--- NOTE | 2024-12-18 16:18 | HO.PHP ---
Clients case was opened and reviewed in teams today.
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
--- NOTE | 2024-12-26 17:57 | HO.PHPPROGNO ---
Subjective Subjective Date of Service: 12/25/24 Reason For Visit: mdd Mental Status Exam Mental Status Exam Narrative: Alert, oriented, in no acute distress. Calmer today, cooperative, engaged. No psychomotor agitation or neurovegetative retardation. Eye contact maintained. Mood anxious, affect anxious, but brighter, variable, mood congruent. Speech normal. Thought process linear, coherent. Thought content related to stressors, denies any hopelessness or SI. Denies any aggressive ideation or HI. No paranoia or delusional content elicited. No evidence of psychosis. Insight and judgment - fair but adequate. Diagnostics Vital Signs (24Hr): BMI result Body Mass Index 59.1 Assessment & Plan Assessment & Plan (1) Major depressive disorder, recurrent, unspecified: Status: Acute Code(s): F33.9 - Major depressive disorder, recurrent, unspecified (2) Other specified persistent mood disorders: Status: Acute Code(s): F34.89 - Other specified persistent mood disorders (3) PTSD (post-traumatic stress disorder): Status: Chronic Code(s): F43.10 - Post-traumatic stress disorder, unspecified (4) Hyperparathyroidism: Status: Acute Code(s): E21.3 - Hyperparathyroidism, unspecified Assessment and Plan: mild Plan continue PHP continue gabapentin 600 mg qhs continue trazodone 25 mg qhs PRN sleep (takes regularly) (I suggested patient could try increasing to 900 mg qhs and holding trazodone for 2 nights to see if sleep improves and can better address pain) continue clomipramine 50 mg qhs continue clonazepam 0.5 mg BID prn anxiety start vitamin D3 5000 mg qd for vit D insufficiency, since elevated PTH likely due to vit D suboptimal levels (renal fxn appears intact, calcium wnl) continue regular medications: LT4 88 mcg, sumatriptan 100 mg, labwork findings reviewed with patient continue to monitor Patient educated on: diagnosis, medication risk/benefits and medical condition Informed Consent: understands Reason for contiued partial hosp. stay Substantial Risk for: med/psych decompensation Certification I certify that partial hospital treatment is medically necessary due to the symptoms and problems resulting from the patient's mental illness and the failure to treat the patient at the partial hospital level of care would likely result in the patient requiring inpatient psychiatric care which could not be prevented at a less intensive level of care. Total time managing care of this patient today __40__ minutes. Discharge Plan Discharge Attending provider: Viridiana Valdez Medications: New gabapentin 600 mg tablet 600 mg PO BEDTIME Qty: 14 0RF cholecalciferol (vitamin D3) [Vitamin D3] 125 mcg (5,000 unit) tablet 125 mcg PO DAILY Qty: 30 2RF Continued trazodone 50 mg tablet 50 - 100 mg PO BEDTIME Rx Instructions: Take 1-2 tabs at bedtime clonazepam 0.5 mg tablet 0.5 mg PO BID PRN (Reason: Anxiety) Rx Instructions: Max dose two tabs daily. clomipramine 50 mg capsule 100 mg PO BEDTIME Rx Instructions: Take 2 caps daily at bedtime with a meal. sumatriptan succinate 100 mg tablet See Rx Instructions .ROUTE .COMPLEX Rx Instructions: Take one tab at the onset of migraine. May repeat in two hours if needed. Max dose two tabs daily. levothyroxine 88 mcg tablet 88 mcg PO DAILY Discontinued gabapentin 300 mg capsule 300 mg PO BEDTIME Stand Alone Forms: Patient Portal Discharge page Print Language: Tanzanian
--- NOTE | 2024-12-29 19:53 | HO.PHPPROGNO ---
Subjective Subjective Date of Service: 12/29/24 Reason For Visit: mdd Diagnostics Vital Signs (24Hr): BMI result Body Mass Index 59.1 Assessment & Plan Certification I certify that partial hospital treatment is medically necessary due to the symptoms and problems resulting from the patient's mental illness and the failure to treat the patient at the partial hospital level of care would likely result in the patient requiring inpatient psychiatric care which could not be prevented at a less intensive level of care. Total time managing care of this patient today ____ minutes. Discharge Plan Discharge Attending provider: Viridiana Valdez Medications: New gabapentin 600 mg tablet 600 mg PO BEDTIME Qty: 14 0RF cholecalciferol (vitamin D3) [Vitamin D3] 125 mcg (5,000 unit) tablet 125 mcg PO DAILY Qty: 30 2RF aripiprazole 2 mg tablet 2 mg PO BEDTIME Qty: 30 0RF Continued trazodone 50 mg tablet 50 - 100 mg PO BEDTIME Rx Instructions: Take 1-2 tabs at bedtime clonazepam 0.5 mg tablet 0.5 mg PO BID PRN (Reason: Anxiety) Rx Instructions: Max dose two tabs daily. clomipramine 50 mg capsule 100 mg PO BEDTIME Rx Instructions: Take 2 caps daily at bedtime with a meal. sumatriptan succinate 100 mg tablet See Rx Instructions .ROUTE .COMPLEX Rx Instructions: Take one tab at the onset of migraine. May repeat in two hours if needed. Max dose two tabs daily. levothyroxine 88 mcg tablet 88 mcg PO DAILY Discontinued gabapentin 300 mg capsule 300 mg PO BEDTIME Stand Alone Forms: Patient Portal Discharge page Patient Education: Mood Disorders (DC), PTSD (Post Traumatic Stress Disorder) (DC) Print Language: Bel[place]ian
== END 2024-12-29 23:59 | disposition home or self-care (01) ==
LOC: HO.PHPA 11:00
PROVIDERS: Visit Provider Psychiatry & Neurology Psychiatry
DX: F33.9 Major depressive disorder, recurrent, unspecified (principal); F34.89 Other specified persistent mood disorders; F43.10 Post-traumatic stress disorder, unspecified; E21.3 Hyperparathyroidism, unspecified; Z79.899 Other long term (current) drug therapy
CPT/HCPCS: 90791; 90853